=== PATIENT | female | born 1955 | race Caucasian/White ===

== ENCOUNTER → 2016-12-01 | Outpatient (REF) | payer OTHER | LOC: M LAB REF 12:46 | PROVIDERS: ATTEND Physician Assistant Medical | DX: N39.0 Urinary tract infection, site not specified (principal) ==

== ENCOUNTER → 2017-01-21 | Outpatient (CLI) | payer OTHER ==
[2017-01-21 10:02] LABS: ALBUMIN 3.7 GM/DL (3.2-5.2); ALBUMIN/GLOBULIN RATIO 1.12 (1.00-1.93); ALKALINE PHOSPHATASE 65 U/L (45-117); ALT/SGPT 41 U/L (12-78); ANION GAP 6 MEQ/L (8-16); AST/SGOT 25 U/L (15-37); BILIRUBIN,TOTAL 0.5 MG/DL (0.2-1.0); BLOOD UREA NITROGEN 11 MG/DL (7-18); CALCIUM LEVEL 8.7 MG/DL (8.8-10.2); CARBON DIOXIDE LEVEL 29 MEQ/L (21-32); CHLORIDE LEVEL 107 MEQ/L (98-107); CHOLESTEROL LEVEL 169 MG/DL (<200); CREATININE FOR GFR 0.71 MG/DL (0.55-1.02); GLOMERULAR FILTRATION RATE > 60.0 (>45); GLUCOSE, FASTING 145 MG/DL (80-110); POTASSIUM SERUM 4.7 MEQ/L (3.5-5.1); SODIUM LEVEL 142 MEQ/L (136-145); TRIGLYCERIDES LEVEL 93 MG/DL (<150)
== END ==
LOC: M LAB 08:44
PROVIDERS: ATTEND Family Medicine
DX: E11.9 Type 2 diabetes mellitus without complications (principal); Z13.220 Encounter for screening for lipoid disorders

== ENCOUNTER → 2017-03-26 | Outpatient (REF) | payer OTHER | LOC: M LAB REF 17:21 | PROVIDERS: ATTEND Specialist | DX: Z12.4 Encounter for screening for malignant neoplasm of cervix (principal) ==

== ENCOUNTER → 2017-04-20 | Outpatient (CLI) | payer OTHER ==
[2017-04-20 12:06] LABS: BASO % 0.2 % (0.0-1.0); EOS # 0.1 K/mm3 (0.0-0.50); EOS % 2.1 % (0.0-3.0); LARGE UNSTAINED CELL # 0.1 K/mm3 (0.0-0.4); LARGE UNSTAINED CELL % 2.6 % (0.0-4.0); LYMPH # 1.6 K/mm3 (1.5-4.5); LYMPH % 35.8 % (24.0-44.0); MEAN CORPUSCULAR HEMOGLOBIN 31.4 pg (27.0-33.0); MEAN CORPUSCULAR VOLUME 92.6 fl (80.0-96.0); MONO # 0.3 K/mm3 (0.0-0.8); MONO % 7.3 % (0.0-5.0); NEUTROPHILS # 2.1 K/mm3 (1.8-7.7); PLATELET COUNT, AUTOMATED 207 k/mm3 (150-450); RED CELL DISTRIBUTION WIDTH 12.6 % (11.5-14.5); WHITE BLOOD COUNT 4.1 K/mm3 (4.0-10.0)
== END ==
LOC: M LAB 11:26
DX: G62.9 Polyneuropathy, unspecified (principal); R49.0 Dysphonia

== ENCOUNTER → 2017-05-20 | Outpatient (CLI) | payer OTHER ==
--- NOTE | 2017-05-20 10:52 | REPMRS ---
Patient History The patient states she had a clinical breast exam in March 2017. Family history of prostate cancer in maternal grandfather at age 76. Benign stereotatic breast biopsy of the left breast, June 03, 2012. Digital Mammo Screening Bilat: May 20, 2017 - Exam #: [id number] Bilateral CC and MLO view(s) were taken. Technologist: Janice Hyatt, Technologist Prior study comparison: May 19, 2016, bilateral digital mammo screening bilat performed at [facility]. May 10, 2015, bilateral digital mammo screening bilat performed at [facility]. March 16, 2014, bilateral digital mammo screening bilat performed at [facility]. FINDINGS: The breast tissue is heterogeneously dense. This may lower the sensitivity of mammography. A needle biopsy marker clip is again noted projecting in the upper outer quadrant of the left breast. There is a moderate amount of heterogeneously dense fibroglandular tissue which is fairly symmetric. There is no interval development of dominant mass, architectural distortion, or clustered microcalcification typical of malignancy. There has been no change in the appearance of the mammogram from the prior studies. ASSESSMENT: BI-RADS/ACR category 2 mammogram. Benign finding(s). Recommendation Routine screening mammogram in 1 year (for women over age 40). This mammogram was interpreted with the aid of an FDA-approved computer-aided dectection system. Electronically Signed By: Fady Tovar MD 05/20/17 [id number]
== END ==
LOC: M RAD 10:18
PROVIDERS: ATTEND Specialist
DX: Z12.31 Encounter for screening mammogram for malignant neoplasm of breast (principal)

== ENCOUNTER → 2017-07-29 | Outpatient (CLI) | payer OTHER ==
[2017-07-29 10:17] LABS: ALBUMIN 3.8 GM/DL (3.2-5.2); ALBUMIN/GLOBULIN RATIO 1.09 (1.00-1.93); ALKALINE PHOSPHATASE 62 U/L (45-117); ALT/SGPT 41 U/L (12-78); ANION GAP 6 MEQ/L (8-16); AST/SGOT 19 U/L (7-37); BILIRUBIN,TOTAL 0.4 MG/DL (0.2-1.0); BLOOD UREA NITROGEN 12 MG/DL (7-18); CALCIUM LEVEL 9.2 MG/DL (8.8-10.2); CARBON DIOXIDE LEVEL 29 MEQ/L (21-32); CHLORIDE LEVEL 108 MEQ/L (98-107); CREATININE FOR GFR 0.77 MG/DL (0.55-1.02); GLOMERULAR FILTRATION RATE > 60.0 (>45); GLUCOSE, FASTING 161 MG/DL (80-110); SODIUM LEVEL 143 MEQ/L (136-145); TOTAL PROTEIN 7.3 GM/DL (6.4-8.2)
[2017-07-29 10:18] LABS: POTASSIUM SERUM 5.4 MEQ/L (3.5-5.1)
== END ==
LOC: M LAB 09:26
PROVIDERS: ATTEND Student in an Organized Health Care Education/Training Program
DX: E11.9 Type 2 diabetes mellitus without complications (principal); E55.9 Vitamin D deficiency, unspecified

== ENCOUNTER → 2017-10-22 | Outpatient (CLI) | payer OTHER ==
[2017-10-22 11:18] LABS: ESTIMATED AVERAGE GLUCOSE 174 MG/DL (60-110); HEMOGLOBIN A1c 7.7 %
[2017-10-22 11:21] LABS: ANION GAP 6 MEQ/L (8-16); BLOOD UREA NITROGEN 11 MG/DL (7-18); CALCIUM LEVEL 9.3 MG/DL (8.8-10.2); CARBON DIOXIDE LEVEL 31 MEQ/L (21-32); CHLORIDE LEVEL 103 MEQ/L (98-107); CREATININE FOR GFR 0.76 MG/DL (0.55-1.30); GLOMERULAR FILTRATION RATE > 60.0 (>45); GLUCOSE, FASTING 135 MG/DL (70-100); SODIUM LEVEL 140 MEQ/L (136-145)
== END ==
LOC: M LAB 10:33
DX: E11.9 Type 2 diabetes mellitus without complications (principal)
CPT/HCPCS: 83036

== ENCOUNTER → 2017-12-22 | Outpatient (CLI) | payer OTHER ==
[2017-12-22 10:55] LABS: ALBUMIN/GLOBULIN RATIO 1.14 (1.00-1.93); ALKALINE PHOSPHATASE 70 U/L (45-117); ALT/SGPT 43 U/L (12-78); ANION GAP 6 MEQ/L (8-16); AST/SGOT 24 U/L (7-37); BILIRUBIN,TOTAL 0.6 MG/DL (0.2-1.0); BLOOD UREA NITROGEN 9 MG/DL (7-18); CARBON DIOXIDE LEVEL 30 MEQ/L (21-32); CHLORIDE LEVEL 107 MEQ/L (98-107); CREATININE FOR GFR 0.77 MG/DL (0.55-1.30); GLOMERULAR FILTRATION RATE > 60.0 (>45); GLUCOSE, FASTING 151 MG/DL (70-100); POTASSIUM SERUM 4.6 MEQ/L (3.5-5.1); SODIUM LEVEL 143 MEQ/L (136-145); TOTAL PROTEIN 7.5 GM/DL (6.4-8.2)
[2017-12-24 14:19] LABS: VITAMIN D 1,25 DIHYDROXY 35.4 pg/mL (19.9-79.3)
== END ==
LOC: M LAB 09:56
DX: E11.9 Type 2 diabetes mellitus without complications (principal); E55.9 Vitamin D deficiency, unspecified
CPT/HCPCS: 80053

== ENCOUNTER → 2018-04-21 | Outpatient (REF) | payer OTHER ==
[2018-04-21 16:56] LABS: ESTIMATED AVERAGE GLUCOSE 163 MG/DL (60-110); HEMOGLOBIN A1c 7.3 %
[2018-04-21 17:46] LABS: CREATININE, URINE 86.1 MG/DL; MALB URINE SIEMENS 7.2 MG/L; MAU/CREAT RATIO 8.3 MCG/MG (0.0-30.0)
== END ==
LOC: M SFHCPLAZ 12:21
DX: E11.9 Type 2 diabetes mellitus without complications (principal)

== ENCOUNTER → 2018-08-30 | Outpatient (CLI) | payer OTHER ==
[~2018-08-30] MED LIST: ALBU17IN2 INH; ARNU1INH INH; ASPI1TAB PO; CETI10TA PO; FLON1SPR; GLIM2TA PO; METF10004 PO; RANI300T PO
[2018-08-30 10:34] LABS: HEMOGLOBIN A1c 9.1 %
== END ==
LOC: M LAB 09:46
PROVIDERS: ATTEND Student in an Organized Health Care Education/Training Program
DX: E11.9 Type 2 diabetes mellitus without complications (principal)

== ENCOUNTER 2018-10-14 06:36 | Day surgery (SDC) | payer OTHER ==
[~2018-10-14] VITALS: Ht 160 cm; Wt 69.4 kg
[~2018-10-14 06:36] MED LIST changes: +NESI25TA PO; +RANI150T PO
[2018-10-14] MEDS ORDERED: LIDOCAINE 2% INJ 100 MG/5 ML SDV (FOR ANES.) As Ordered ONE (06:59)
[2018-10-14] MEDS ORDERED: PROPOFOL 200 MG/20 ML VIAL As Ordered ONE (06:59)
[2018-10-14] MEDS ORDERED: NS 1,000 ML IV ONE (07:00)
[2018-10-14] MEDS ORDERED: SIMETHICONE 40MG/0.6ML DROPS 30ML As Ordered ONE (07:09)
--- NOTE | 2018-10-14 07:57 | ROOR ---
Patient Name: Luann Tomas Procedure Date: 10/14/2018 7:36 AM Date of : 1955 Age: 62 Room: [facility] Gender: Female Note Status: Finalized Procedure: Colonoscopy Indications: High risk colon cancer surveillance: Personal history of colonic polyps, Last colonoscopy: July 2013 Providers: Kurt MAHAJAN MD Referring MD: HERMAN ZAMORA MD Requesting Provider: Medicines: Monitored Anesthesia Care Complications: No immediate complications. Procedure: Pre-Anesthesia Assessment: - The heart rate, respiratory rate, oxygen saturations, blood pressure, adequacy of pulmonary ventilation, and response to care were monitored throughout the procedure. The Colonoscope was introduced through the anus and advanced to the terminal ileum, with identification of the appendiceal orifice and IC valve. The colonoscopy was performed without difficulty. The patient tolerated the procedure well. The quality of the bowel preparation was good. Findings: The perianal and digital rectal examinations were normal. Small Internal Hemorrhoids. The entire examined colon appeared normal on direct and retroflexion views. Retroflexion in the right colon was performed. Impression: - Small Internal Hemorrhoids. - The entire colon is normal on direct and retroflexion views. - No specimens collected. Recommendation: - Repeat colonoscopy in 10 years for screening purposes. Kurt Mahajan MD Kurt MAHAJAN MD 10/14/2018 7:56:42 AM This report has been signed electronically. Number of Addenda: 0 Note Initiated On: 10/14/2018 7:36 AM Estimated Blood Loss: Estimated blood loss: none.
[2018-10-14 08:15] VITALS: BP 139/76
== END 2018-10-14 08:24 | disposition home or self-care (01) ==
LOC: M OPP 06:36
PROVIDERS: ATTEND Internal Medicine Gastroenterology
DX: K64.8 Other hemorrhoids (principal); Z86.010 Personal history of colon polyps

== ENCOUNTER → 2018-12-08 | Outpatient (CLI) | payer OTHER ==
[~2018-12-08] MED LIST changes: -ASPI1TAB PO; +ASPI81TA26 PO; -GLIM2TA PO; +GLIM2TAB29 PO
[2018-12-08 15:02] LABS: HEMOGLOBIN A1c 7.2 %
== END ==
LOC: M LAB 12:12
PROVIDERS: ATTEND Student in an Organized Health Care Education/Training Program
DX: E11.9 Type 2 diabetes mellitus without complications (principal)

== ENCOUNTER → 2019-01-04 | Outpatient (REF) | payer OTHER | LOC: M SFHCPLAZ 10:30 | PROVIDERS: ATTEND Family Medicine | DX: Z53.9 Procedure and treatment not carried out, unspecified reason (principal); R10.11 Right upper quadrant pain; E11.9 Type 2 diabetes mellitus without complications ==

== ENCOUNTER → 2019-01-07 | Outpatient (CLI) | payer OTHER ==
--- NOTE | 2019-01-07 08:49 | REP ---
Clinical: Right upper quadrant pain. Technique: Real time hernandez scale ultrasound examination using curved array transducer. Findings: The liver is increased echogenicity suggesting fatty infiltration with focal fatty sparing surrounding the gallbladder fossa. The gallbladder is normal and without gallstones, wall thickening, or pericholecystic fluid. No biliary ductal dilatation is appreciated and the common bile duct measures 6.4 mm diameter. Pancreas is incompletely evaluated due to interposed bowel gas but visualized portions appear normal. The right kidney is normal in reniform shape without hydronephrosis and measures 10.0 x 4.4 x 4.3 cm. No ascites. Impression: Hepatic steatosis. Electronically Signed by Jerel Daly MD 01/07/2019 08:41 A
== END ==
LOC: M RAD 06:46
PROVIDERS: ATTEND Student in an Organized Health Care Education/Training Program
DX: K76.0 Fatty (change of) liver, not elsewhere classified (principal)

== ENCOUNTER → 2019-01-11 | Outpatient (CLI) | payer OTHER ==
--- NOTE | 2019-01-12 00:58 | REP ---
Clinical: Right wrist pain and numbness. Technique: AP, lateral, bilateral oblique views. Findings: The carpal bones, surrounding osseous structures, soft tissues, and joint spaces are normal. There is no evidence for acute fracture or dislocation. No subcutaneous emphysema or radiodense foreign body. Impression: Normal wrist series. No acute fracture or dislocation Electronically Signed by Jerel Daly MD 01/12/2019 12:50 A
== END ==
LOC: M RAD 17:24
PROVIDERS: ATTEND Student in an Organized Health Care Education/Training Program
DX: M62.81 Muscle weakness (generalized) (principal)

== ENCOUNTER → 2019-03-31 | Outpatient (CLI) | payer OTHER ==
[2019-03-31 10:57] LABS: HEMOGLOBIN A1c 8.1 %
== END ==
LOC: M LAB 10:01
PROVIDERS: ATTEND Student in an Organized Health Care Education/Training Program
DX: E11.9 Type 2 diabetes mellitus without complications (principal)

== ENCOUNTER 2019-04-11 18:15 | Emergency (ER) | payer OTHER ==
[~2019-04-11] VITALS: Ht 160 cm; Wt 70.9 kg
[~2019-04-11 18:15] MED LIST changes: -ALBU17IN2 INH; +PROV108A INH
[2019-04-11] MEDS ORDERED: GLIP5TAB8 (18:30)
--- NOTE | 2019-04-11 19:13 | REPVR ---
EXAM: CT Head Without Contrast EXAM DATE/TIME: 04/11/2019 6:44 PM CLINICAL HISTORY: 63 years old, female; Numbness / parasthesia; Additional info: Facial numbness TECHNIQUE: Imaging protocol: Computed tomography images of the head without contrast. Radiation optimization: All CT scans at this facility use at least one of these dose optimization techniques: automated exposure control; mA and/or kV adjustment per patient size (includes targeted exams where dose is matched to clinical indication); or iterative reconstruction. COMPARISON: No relevant prior studies available. FINDINGS: Brain: Normal. No hemorrhage. Unremarkable white matter. No mass effect. Ventricles: Normal. No ventriculomegaly. Bones/joints: Unremarkable. No acute fracture. Sinuses: Visualized sinuses are unremarkable. No fluid levels. Mastoid air cells: Visualized mastoid air cells are well aerated. No mastoid effusion. Soft tissues: Unremarkable. IMPRESSION: No acute intracranial abnormality. Electronically signed by: Michael Bradley On 04/11/2019 19:13:20 PM
[2019-04-11 19:35] LABS: BASO % 0.2 % (0.0-1.0); EOS # 0.1 10^3/uL (0.0-0.50); HEMATOCRIT 36.2 % (36.0-47.0); HEMOGLOBIN 12.3 g/dl (12.0-15.5); LYMPH # 1.6 10^3/uL (1.5-4.5); LYMPH % 27.4 % (24.0-44.0); MEAN CORPUSCULAR HEMOGLOBIN 31.1 pg (27.0-33.0); MEAN CORPUSCULAR VOLUME 91.4 fl (80.0-96.0); MONO # 0.5 10^3/uL (0.0-0.8); MONO % 7.7 % (0.0-5.0); NEUTROPHILS # 3.7 10^3/uL (1.8-7.7); NEUTROPHILS % 63.5 % (36.0-66.0); PLATELET COUNT, AUTOMATED 188 10^3/uL (150-450); RED BLOOD COUNT 3.96 10^6/uL (4.00-5.40); WHITE BLOOD COUNT 5.8 10^3/uL (4.0-10.0)
[2019-04-11 19:46] LABS: INR 1.03; PROTHROMBIN TIME 13.2 SECONDS (11.8-14.0)
[2019-04-11 19:47] LABS: PARTIAL THROMBOPLASTIN TIME 27.8 SECONDS (25.0-38.4)
[2019-04-11 20:09] LABS: ALBUMIN 3.8 GM/DL (3.2-5.2); ALT/SGPT 31 U/L (12-78); BILIRUBIN,DIRECT < 0.1 MG/DL (0.0-0.2); BILIRUBIN,TOTAL 0.2 MG/DL (0.2-1.0); BLOOD UREA NITROGEN 10 MG/DL (7-18); CARBON DIOXIDE LEVEL 28 MEQ/L (21-32); CHLORIDE LEVEL 105 MEQ/L (98-107); CK-MB VALUE MASS 1.9 NG/ML (<3.6); CPK CREATINE PHOSPHOKINASE 209 U/L (26-192); GLOMERULAR FILTRATION RATE 37.3 (>45); GLUCOSE, FASTING 196 MG/DL (70-100); LIPASE 264 U/L (73-393); MB/CK RELATIVE INDEX 0.91 (< OR =4); NT-PRO BNP 87 PG/ML (<125); POTASSIUM SERUM 4.2 MEQ/L (3.5-5.1); SODIUM LEVEL 140 MEQ/L (136-145); THYROID STIMULATING HORMONE 0.523 uIU/ML (0.358-3.740); TOTAL PROTEIN 7.3 GM/DL (6.4-8.2); TROPONIN I < 0.02 NG/ML (< 0.10)
--- NOTE | 2019-04-11 20:19 | ECGEPIP ---
[facility] - ED Test Date: 2019-04-11 Pat Name: AGATHA WISE Department: Room: - Gender: Female [employer]: : 1955 Requested By: Antolin Ray Order Number: [id number] Reading MD: Antolin Ray Measurements Intervals [place] Rate: 72 P: 28 [place]: 142 QRS: 7 QRSD: 91 T: 17 QT: 401 QTc: 440 Interpretive Statements SINUS RHYTHM POSSIBLE RIGHT VENTRICULAR CONDUCTION DELAY NONSPECIFIC ST T WAVE CHANGES CW 05/24/[address] T WAVE CHANGES Electronically Signed on 04-11-2019 20:19:21 EDT by Antolin Ray
[2019-04-11] MEDS ORDERED: NS 1,000 ML IV ONE (20:30)
[2019-04-11] MEDS ORDERED: KETOROLAC 30 MG/ML VIAL (J1885) IV ONE (20:30)
[2019-04-11] MEDS ORDERED: ISOVUE-370 76% 100ML VIAL (Q9967) As Ordered ONE (22:48)
[2019-04-11 23:04] VITALS: BP 165/79
--- NOTE | 2019-04-11 23:33 | REPVR ---
EXAM: CT Angiography Chest With Contrast EXAM DATE/TIME: 04/11/2019 10:56 PM CLINICAL HISTORY: 63 years old, female; Chest pain; Type not specified; Additional info: Cp TECHNIQUE: Imaging protocol: Axial computed tomographic angiography images of the chest with intravenous contrast using CT angiography protocol. Coronal and sagittal reformatted images were created and reviewed. 3D rendering: MIP reconstructed images were created and reviewed. Radiation optimization: All CT scans at this facility use at least one of these dose optimization techniques: automated exposure control; mA and/or kV adjustment per patient size (includes targeted exams where dose is matched to clinical indication); or iterative reconstruction. Contrast material: ISO;Contrast volume: 75 ml;Contrast route: AC; COMPARISON: CT Chest with contrast 02/14/2014 5:45 PM FINDINGS: Pulmonary arteries: There is opacification of the pulmonary arteries with no evidence of pulmonary embolus. Aorta: There is opacification of the aorta which appears intact. Lungs: There is patchy hazy interstitial density throughout the lungs and not seen on the examination of 2014. This could represent chronic or acute interstitial lung changes. Chronic interstitial lung disease includes sarcoidosis, idiopathic pulmonary fibrosis, collagen vascular disease, histiocytosis. Acute interstitial lung disease includes UIP, DIP patchy interstitial edema, interstitial pneumonitis and allergic pneumonitis. Pleural space: Unremarkable. No pneumothorax. No pleural effusion. Heart: The heart is normal in size. Gallbladder and bile ducts: Normal gallbladder. Adrenals: Normal adrenal glands. Lymph nodes: Unremarkable. No enlarged lymph nodes. Bones/joints: No evidence of bony abnormality. Soft tissues: Unremarkable. IMPRESSION: 1. No evidence of pulmonary embolus. 2. Patchy and hazy interstitial density throughout both lungs new since 2014. Differential considerations listed above. Electronically signed by: Michael Bradley On 04/11/2019 23:32:54 PM
[2019-04-12] MEDS ORDERED: dexameTHASONE 20 MG/5 ML VIAL (J1100) IV ONE
[2019-04-12] MEDS ORDERED: PRED20TA PO (00:10)
--- NOTE | 2019-04-12 07:22 | REP ---
REASON: Chest pain. PRIORS: None. FINDINGS: The technique utilized in obtaining the radiograph has magnified the cardiac silhouette and accentuated the interstitial markings. The superior mediastinal structures are midline. The cardiac silhouette is unremarkable in size, shape, and position. The diaphragmatic surfaces of the lungs are regular, and the costophrenic angles are clear. The pulmonary ramos are clear. The imaged osseous structures are intact. IMPRESSION: There is no acute cardiopulmonary disease. Electronically Signed by David Rivera DO 04/12/2019 10:11 A
--- NOTE | 2019-04-12 16:20 | ED PDOC ---
Post-Departure Follow-Up certified letter sent to pt re formal read of cta chest. see report.needs fu. fi nd out who pcp is and fax report and have pt fu there. if no pcp [facility] fax report there Antolin Reyes MD Apr 12, 2019 16:20
== END 2019-04-12 00:24 | disposition home or self-care (01) ==
LOC: M ED 18:15
DX: J67.9 Hypersensitivity pneumonitis due to unspecified organic dust (principal); R07.1 Chest pain on breathing; E11.9 Type 2 diabetes mellitus without complications; K21.9 Gastro-esophageal reflux disease without esophagitis; J45.909 Unspecified asthma, uncomplicated; J30.2 Other seasonal allergic rhinitis; R91.8 Other nonspecific abnormal finding of lung field; Z79.82 Long term (current) use of aspirin; Z79.4 Long term (current) use of insulin; Z79.899 Other long term (current) drug therapy; Z88.5 Allergy status to narcotic agent
CPT/HCPCS: 70450; 71045; 71275; 80048; 80076; 82550; 82553; 83690; 83880; 84439; 84443; 85025; 85610; 85730; 86850; 86900; 86901; 93005; 93041; 94760; 96361; 96374; 96375; 99285; J1100; J1885; Q9967

== ENCOUNTER → 2019-06-20 | Outpatient (CLI) | payer OTHER ==
[~2019-06-20] MED LIST changes: +GLIP5TAB8; +PRED20TA PO
[2019-06-20 11:56] LABS: HEMOGLOBIN A1c 8.7 %
[2019-06-20 12:02] LABS: CREATININE, URINE 77.9 MG/DL; MALB URINE SIEMENS 9.6 MG/L; MAU/CREAT RATIO 12.3 MCG/MG (0.0-30.0)
[2019-06-20 12:07] LABS: CHOLESTEROL LEVEL 180 MG/DL (<200); CHOLESTEROL RISK RATIO 2.903 (<5); HDL CHOLESTEROL 62 MG/DL (>40); LDL CHOLESTEROL 94 MG/DL (<100); NON-HDL-C 118 MG/DL; TRIGLYCERIDES LEVEL 119 MG/DL (<150)
== END ==
LOC: M LAB 10:13
PROVIDERS: ATTEND Student in an Organized Health Care Education/Training Program
DX: Z13.6 Encounter for screening for cardiovascular disorders (principal); E11.9 Type 2 diabetes mellitus without complications; Z86.19 Personal history of other infectious and parasitic diseases

== ENCOUNTER → 2019-07-07 | Outpatient (CLI) | payer OTHER ==
[2019-07-07 15:04] LABS: BLOOD UREA NITROGEN 15 MG/DL (7-18); CALCIUM LEVEL 9.2 MG/DL (8.8-10.2); CARBON DIOXIDE LEVEL 30 MEQ/L (21-32); CHLORIDE LEVEL 103 MEQ/L (98-107); CREATININE FOR GFR 0.85 MG/DL (0.55-1.30); GLOMERULAR FILTRATION RATE > 60.0 (>45); GLUCOSE, FASTING 214 MG/DL (70-100); POTASSIUM SERUM 4.4 MEQ/L (3.5-5.1); SODIUM LEVEL 138 MEQ/L (136-145)
--- NOTE | 2019-07-07 17:01 | ECGEPIP ---
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 Electronically Signed on 07-07-2019 17:01:17 EDT by Kurt Ray
== END ==
LOC: M LAB 14:00
PROVIDERS: ATTEND Physician Assistant Surgical
DX: G56.01 Carpal tunnel syndrome, right upper limb (principal); M65.351 Trigger finger, right little finger

== ENCOUNTER → 2019-08-29 | Outpatient (CLI) | payer OTHER ==
[2019-08-29 12:24] LABS: HEMOGLOBIN A1c 8.3 %
== END ==
LOC: M LAB 10:59
PROVIDERS: ATTEND Student in an Organized Health Care Education/Training Program
DX: E11.9 Type 2 diabetes mellitus without complications (principal)

== ENCOUNTER 2019-09-05 09:50 | Outpatient (RCR) | payer OTHER | END 2019-09-06 | LOC: M PT 09:50 | PROVIDERS: ATTEND Physician Assistant Medical | DX: Z47.89 Encounter for other orthopedic aftercare (principal) ==

== ENCOUNTER → 2019-09-05 | Outpatient (CLI) | payer OTHER ==
--- NOTE | 2019-09-05 12:39 | REP ---
Clinical: Hepatitis C. Technique: Real time hernandez scale ultrasound examination using curved array transducer. Findings: Liver is diffusely increased echogenicity with poor through transmission suggesting fatty infiltration. No focal hepatic lesion identified. The pancreas is incompletely evaluated due to interposed bowel gas but visualized portions appear normal. Gallbladder is normal and without gallstones, wall thickening, or pericholecystic fluid. No biliary ductal dilatation is appreciated and the common bile duct measures 6.2 mm diameter. Right kidney is normal in reniform shape without hydronephrosis and measures 10.4 x 4.4 x 4.3 cm. No ascites. Impression: Hepatosteatosis. No focal hepatic lesion identified. Electronically Signed by Jerel Daly MD 09/05/2019 08:08 A
== END ==
LOC: M RAD 07:37
PROVIDERS: ATTEND Student in an Organized Health Care Education/Training Program
DX: B18.2 Chronic viral hepatitis C (principal)

== ENCOUNTER 2019-10-06 10:45 | Outpatient (RCR) | payer OTHER | END 2019-10-07 | LOC: M PT 10:45 | PROVIDERS: ATTEND Physician Assistant Medical | DX: Z47.89 Encounter for other orthopedic aftercare (principal) ==

== ENCOUNTER → 2019-10-26 | Outpatient (REF) | payer OTHER ==
[2019-10-26 13:36] LABS: INFLUENZA A AMPLIFICATION POSITIVE (NEGATIVE); INFLUENZA B AMPLIFICATION NEGATIVE (NEGATIVE)
== END ==
LOC: M LAB REF 12:32
PROVIDERS: ATTEND Physician Assistant
DX: J11.1 Influenza due to unidentified influenza virus with other respiratory manifestations (principal)

== ENCOUNTER → 2019-11-22 | Outpatient (CLI) | payer OTHER ==
[2019-11-22 10:39] LABS: HEMOGLOBIN A1c 9.1 %
== END ==
LOC: M LAB 08:55
PROVIDERS: ATTEND Student in an Organized Health Care Education/Training Program
DX: E11.9 Type 2 diabetes mellitus without complications (principal)

== ENCOUNTER → 2020-08-29 | Outpatient (REF) | payer OTHER ==
[2020-08-29 11:58] LABS: BASO % 0.4 % (0.0-1.0); EOS # 0.2 10^3/uL (0.0-0.5); EOS % 3.5 % (0.0-3.0); HEMATOCRIT 41.1 % (36.0-47.0); HEMOGLOBIN 13.4 g/dl (12.0-15.5); LYMPH # 1.9 10^3/uL (1.5-5.0); LYMPH % 40.1 % (24.0-44.0); MEAN CORPUSCULAR HEMOGLOBIN 29.7 pg (27.0-33.0); MEAN CORPUSCULAR HGB CONC 32.6 g/dl (32.0-36.5); MEAN CORPUSCULAR VOLUME 91.1 fl (80.0-96.0); MONO # 0.4 10^3/uL (0.0-0.8); MONO % 8.9 % (0.0-5.0); NEUTROPHILS # 2.2 10^3/uL (1.5-8.5); NEUTROPHILS % 46.9 % (36.0-66.0); PLATELET COUNT, AUTOMATED 218 10^3/uL (150-450); RED BLOOD COUNT 4.51 10^6/uL (4.00-5.40); WHITE BLOOD COUNT 4.6 10^3/uL (4.0-10.0)
[2020-08-29 12:35] LABS: ALBUMIN 3.9 GM/DL (3.2-5.2); ALT/SGPT 37 U/L (12-78); BILIRUBIN,TOTAL 0.4 MG/DL (0.2-1.0); BLOOD UREA NITROGEN 13 MG/DL (7-18); CALCIUM LEVEL 9.1 MG/DL (8.8-10.2); CARBON DIOXIDE LEVEL 31 MEQ/L (21-32); CHLORIDE LEVEL 105 MEQ/L (98-107); CHOLESTEROL LEVEL 167 MG/DL (<200); CHOLESTEROL RISK RATIO 2.982 (<5); CREATININE FOR GFR 0.71 MG/DL (0.55-1.30); FREE T4 1.01 NG/DL (0.76-1.46); GLOMERULAR FILTRATION RATE > 60.0 (>45); GLUCOSE, FASTING 268 MG/DL (70-100); HDL CHOLESTEROL 56 MG/DL (>40); LDL CHOLESTEROL 95 MG/DL (<100); NON-HDL-C 111 MG/DL; SODIUM LEVEL 139 MEQ/L (136-145); THYROID STIMULATING HORMONE 0.546 uIU/ML (0.358-3.740); TOTAL PROTEIN 7.1 GM/DL (6.4-8.2); TRIGLYCERIDES LEVEL 79 MG/DL (<150)
[2020-08-29 13:16] LABS: HEMOGLOBIN A1c 10.4 %
[2020-08-30 09:21] LABS: TOTAL 25(OH) VITAMIN D 49.9 NG/ML (30.0-100.0)
== END ==
LOC: M LAB REF 11:29
PROVIDERS: ATTEND Nurse Practitioner Family
DX: J45.909 Unspecified asthma, uncomplicated (principal); K21.9 Gastro-esophageal reflux disease without esophagitis

== ENCOUNTER 2020-10-28 14:28 | Emergency (ER) | payer OTHER ==
[~2020-10-28] VITALS: Ht 160 cm; Wt 69.5 kg
--- OUTSIDE RECORDS SUMMARY | 2020-10-28 14:34 | CCD ---
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 Active Not available glipizide 10 mg tablet Take 1 tablet twice a day by oral route as directed. Active Not available glipizide 5 mg tablet TAKE ONE TABLET BY MOUTH TWICE A DAY Active No t available metformin 1,000 mg tablet Take 1 tablet twice a day by oral route as directed. Active Not available omeprazole 20 mg capsule,delayed release TAKE ONE CAPSULE BY MOUTH EVERY DAY DIRECTED Active Not available OneTouch Ultra Blue Test Strip USE TO TEST THREE TIMES A DAY NEEDED UNDER THE SKIN Active Not available oseltamivir 75 mg capsule Completed 2019 ranitidine 150 mg tablet Completed 020 triamcinolone acetonide 0.1 % topical ointment Active Not available Ventolin HFA 90 mcg/actuation aerosol in haler INHALE 1 PUFF BY MOUTH NEEDED EVERY 4 HOURS Active Not available Problems None recorded. Procedures Notes: Lid Lift both Eyes Results Lab Results None recorded. Past Encounters 08/22/2020 Needs Influenza Immunization; Type II Diabetes Mellitus Uncontrolled; Asthma Crystal Mendez, [employer]-[facility]: [address] [place] [address], Ph. Social History Tobacco Smoking Status Never Smoker Vaccine List Vaccine Type influenza, injectable, quadrivalent, pre servative free 08/24/20200.5 mL Notes: Pt would like Flu vaccine Plan of Care Reminders Provider Appointments None recorded. Lab None recorded. Referral None recorded. Procedures None recorded. Surgeries None recorded. Imaging None recorded. Vitals Height Weight BMI Blood Pressure 63 in 152 lbs 2 oz 26.9 kg/m2 (1) 154/93 mm[ Hg] (2) 138/79 mm[Hg]
--- OUTSIDE RECORDS SUMMARY | 2020-10-28 14:34 | CCD ---
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 Name Role Phone [facility] 2 [phone] Allergies Code Code System Name Reaction Severity Status Onset 2669 RxNorm Codeine Rash Mild Active Medications Name Status Start Date Stop Date albuterol sulfate 2.5 mg/3 mL (0.083 %) solution for nebulizatio n Active Not available albuterol sulfate HFA 90 mcg/actuation a erosol inhaler INHALE 1 PUFF BY MOUTH EVERY 4 HOURS NEEDED Active Not available aspirin 81 mg tablet,delayed release TAKE ONE TABLET BY MOUTH EVERY DAY DIRECTED Active Not available glipizide 10 mg tablet TAKE ONE TABLET BY MOUTH TWICE A DAY DIRECTED Active Not available glipizide 5 mg tablet TAKE ONE TABLET BY MOUTH TWICE A DAY Completed metformin 1,000 mg tablet TAKE ONE TABLET BY MOUTH TWICE A DAY DIRECTED Active Not available omeprazole 20 mg capsule,delayed release TAKE ONE CAPSULE BY MOUTH EVERY DAY DIRECTED Active Not available OneTouch Ultra Blue Test Strip USE TO TEST THREE TIMES A DAY NEEDED UNDER THE SKIN Active Not available oseltamivir 75 mg capsule Completed 2019 ranitidine 150 mg tablet Completed 020 triamcinolone acetonide 0.1 % topical ointment Active Not available Problems None recorded. Procedures Date Name Performed by 10/03/2020 MAMMO, Screening, Digital, Bilateral Inf ormation not available Notes: Lid Lift both Eyes Results Lab Results Date Name Specimen Result Interpretation Description Value Range Status Address 08/29/2020 CBC W/ Auto Diff Normal White Blood Count 4.6 10 4.0-10.0 10 [facility]: [address] [facility] Normal Red Blood Count 4.51 10 4.00-5.40 10 [facility]: [address] [facility] Normal Hemoglobin 13.4 g/dL 12.0-15.5 g/dL Final [facility]: [address] [facility] Normal Hematocrit 41.1 % 36.0-47.0 % [facility]: [address] [facility] Normal Mean Corpuscular Volume 91.1 fL 80.0 -96.0 fL [facility]: [address] [facility] Normal Mean Corpuscular Hemoglobin 29.7 pg 27.0-33.0 pg Final [facility]: [address] [facility] Normal Mean Corpuscular HGB Conc 32.6 g/dL 32.0-36.5 g/dL Final [facility]: [address] [facility] Normal Red Cell Distribution Width 11.9 % 1 1.5-14.5 % [facility]: [address] [facility] Normal Platelet Count, Automated 218 10 150 -450 10 [facility]: [address] [facility] Normal Neutrophils % 46.9 % 36.0-66.0 % [facility]: [address] [facility] Normal Lymph % 40.1 % 24.0-44.0 % [facility]: [address] [facility] High [place] % 8.9 % 0.0-5.0 % [facility]: [address] [facility] High Eos % 3.5 % 0.0-3.0 % [facility]: [address] [facility] Normal Baso % 0.4 % 0.0-1.0 % [facility]: [address] [facility] Normal Immature Granulocyte % 0.2 % 0-3.0 % [facility]: [address] [facility] Normal Nucleated Red Blood Cell % 0.0 % 0- 0 % [facility]: [address] [facility] Normal Neutrophils # 2.2 10 1.5-8.5 10 [facility]: [address] [facility] Normal Lymph # 1.9 10 1.5-5.0 10 [facility]: [address] [facility] Normal [place] # 0.4 10 0.0-0.8 10 [facility]: [address] [facility] Normal Eos # 0.2 10 0.0-0.5 10 [facility]: [address] [facility] Normal Baso # 0.0 10 0.0-0.2 10 [facility]: [address] [facility] 08/29/2020 HbA1C (Hemoglobin a1C), Blood Normal Hemogl obin a1C 10.4 % [facility]: [address] [facility] High Estimated Average Glucose 252 mg/dL 60-110 mg/dL [facility]: 0 [facility] 08/29/2020 CMP, Serum or Plasma High Glucose, Fastin g 268 mg/dL 70-100 mg/dL [facility]: 83 0 [facility] Normal Blood Urea Nitrogen 13 mg/dL 7-18 mg /dL [facility]: [address] [facility] Normal Creatinine for GFR 0.71 mg/dL 0.55-1 .30 mg/dL [facility]: 0 [facility] Normal Glomerular Filtration Rate > 60.0 >4 5 [facility]: [address] [facility] Normal Sodium Level 139 mEq/L 136-145 mEq/L [facility]: 0 [facility] Normal Potassium Serum 5.0 mEq/L 3.5-5.1 mE q/L [facility]: [address] [facility] Normal Chloride Level 105 mEq/L 98-107 mEq/ L [facility]: 0 [facility] Normal Carbon Dioxide Level 31 mEq/L 21-32 mEq/L [facility]: 0 [facility] Low Anion Gap 3 mEq/L 8-16 mEq/L [facility]: [address] [facility] Normal Calcium Level 9.1 mg/dL 8.8-10.2 mg/ dL [facility]: 0 [facility] Normal AST/SGOT 15 U/L 7-37 U/L [facility]: [address] [facility] Normal ALT/SGPT 37 U/L 12-78 U/L Final [facility]: [address] [facility] Normal Alkaline Phosphatase 73 U/L 45-117 U /L [facility]: [address] [facility] Normal Bilirubin,total 0.4 mg/dL 0.2-1.0 mg /dL [facility]: [address] [facility] Normal Total Protein 7.1 gm/dL 6.4-8.2 gm/d L [facility]: [address] [facility] Normal Albumin 3.9 gm/dL 3.2-5.2 gm/dL [facility]: [address] [facility] Normal Albumin/globulin Ratio 1.2 1.2-2. 2 [facility]: [address] [facility] 08/29/2020 Lipid Panel, Blood Normal Triglycerides Lev el 79 mg/dL <150 mg/dL [facility]: 83 0 [facility] Normal Cholesterol Level 167 mg/dL <200 mg/ dL [facility]: [address] [facility] Normal HDL Cholesterol 56 mg/dL >40 mg/dL [facility]: [address] [facility] Normal LDL Cholesterol 95 mg/dL <100 mg/dL [facility]: [address] [facility] Normal Non-hdl-c 111 mg/dL [facility]: [address] [facility] Normal Cholesterol Risk Ratio 2.982 <5 [facility]: [address] [facility] 08/29/2020 TSH + Free T4, Serum Normal Thyroid Stimulating Hormone 0.546 uIU/mL 0.358-3.740 uIU/mL [facility]ter: [address] [facility] Normal Free T4 1.01 NG/dL 0.76-1.46 NG/dL [facility]: [address] [facility] 08/29/2020 Vitamin D, 25-Hydroxy, Total, Serum Normal Total 25(Oh) Vitamin D 49.9 NG/mL 30.0-100.0 NG/mL Final [facility]: [address] [facility] Past Encounters 10/03/2020 Patient Asked to Attend; Screening for Malignant Neoplasm of Breast; Type II Diabetes Mellitus Uncontrolled [facility]: [address] [place] [phone], Ph. 08/29/2020 Type II Diabetes Mellitus Uncontrolled [facility]: [address] [place] [phone], Ph. 08/22/2020 Needs Influenza Immunization; Type II Diabetes Mellitus Uncontrolled; Asthma [facility]: [address] [place] [phone], Ph. Social History Tobacco Smoking Status Never Smoker Vaccine List Vaccine Type influenza, injectable, quadrivalent, pre servative free 08/24/20200.5 mL Notes: Pt would like Flu vaccine Plan of Care Patient Instructions Lab results reviewed and discussed with you today. Please continue medications as prescribed. Please try to maintain good nutrition, adequate rest, adequate physical activities and adequate intake of water daily. Please try to avoid processed foods. Reminders Provider Appointments None recorded. Lab None recorded. Referral None recorded. Procedures None recorded. Surgeries None recorded. Imaging None recorded. Vitals 10/03/2020 05:00PM ESTABLISHED [id number] Height Weight BMI Blood Pressure 63 in 151 lbs 8 oz 26.8 kg/m2 124/77 mm[Hg] 08/22/2020 05:00PM NEW ACUTE 20 Height Weight BMI Blood Pressure 63 in 152 lbs 2 oz 26.9 kg/m2 (1) 154/93 mm[ Hg] (2) 138/79 mm[Hg]
--- OUTSIDE RECORDS SUMMARY | 2020-10-28 14:34 | CCD ---
Author Author [facility] Organization [facility] Address Unknown Phone Unavailable Care Team Providers Care Lubricating Machine Tender Name Role Phone Andrea, A Crystal DISABILITY RATER Unavailable Unavailable [place], A Crystal DISABILITY RATER Unavailable Unavailable [place], A Crystal DISABILITY RATER Unavailable Unavailable [place], A Crystal DISABILITY RATER Unavailable Unavailable [place], A Crystal DISABILITY RATER Unavailable Unavailable [place], A Crystal DISABILITY RATER Unavailable Unavailable [place], A Crystal DISABILITY RATER Unavailable Unavailable [place], A Crystal DISABILITY RATER Unavailable Unavailable [place], A Crystal DISABILITY RATER Unavailable Unavailable [place], A Crystal DISABILITY RATER Unavailable Unavailable [place], A Crystal DISABILITY RATER Unavailable Unavailable [place], A Crystal DISABILITY RATER Unavailable Unavailable [place], A Crystal DISABILITY RATER Unavailable Unavailable [place], A Crystal DISABILITY RATER Unavailable Unavailable [place], A Crystal DISABILITY RATER Unavailable Unavailable [place], A Crystal DISABILITY RATER Unavailable Unavailable [place], A Crystal DISABILITY RATER Unavailable Unavailable [place], A Crystal DISABILITY RATER Unavailable Unavailable [place], A Crystal DISABILITY RATER Unavailable Unavailable [place], A Crystal DISABILITY RATER Unavailable Unavailable [place], A Crystal DISABILITY RATER Unavailable Unavailable [place], A Crystal DISABILITY RATER Unavailable Unavailable [place], A Crystal DISABILITY RATER Unavailable Unavailable [place], A Crystal DISABILITY RATER Unavailable Unavailable [place], A Crystal DISABILITY RATER Unavailable Unavailable [place], A Crystal DISABILITY RATER Unavailable Unavailable [place], A Crystal DISABILITY RATER Unavailable Unavailable [place], A Crystal DISABILITY RATER Unavailable Unavailable Marilou YOUNG MD Unavailable Unavailable HECTORMarilou CALLE MD Unavailable Unavailable HECTORMarilou CALLE MD Unavailable Unavailable HECTOR, Marilou BRAGA MD Unavailable Unavailable HECTORMarilou CALLE MD Unavailable Unavailable HECTORMarilou CALLE MD Unavailable Unavailable HECTORMarilou CALLE MD Unavailable Unavailable HECTORMarilou CALLE MD Unavailable Unavailable HECTORMarilou CALLE MD Unavailable Unavailable HECTOR, L MARIA LUZ MD Unavailable Unavailable HECTOR, L MARIA LUZ MD Unavailable Unavailable HECTOR, L MARIA LUZ MD Unavailable Unavailable HECTOR, L MARIA LUZ MD Unavailable Unavailable HECTOR, L MARIA LUZ MD Unavailable Unavailable HECTOR, L MARIA LUZ Unavailable Unavailable HECTOR, L MARIA LUZ MD Unavailable Unavailable HECTOR, L MARIA LUZ Unavailable Unavailable HECTOR, L MARIA LUZ MD Unavailable Unavailable HECTOR, L MARIA LUZ MD Unavailable Unavailable HECTOR, L MARIA LUZ MD Unavailable Unavailable HECTOR, L MARIA LUZ MD Unavailable Unavailable HECTOR, L MARIA LUZ MD Unavailable Unavailable HECTOR, L MARIA LUZ MD Unavailable Unavailable Re-disclosure Warning The records that you are about to access may contain information from federally-assisted alcohol or drug abuse programs. If such information is present, then the following federally mandated warning applies: This information has been disclosed to you from records protected by federal confidentiality rules (42 CFR part 2). The federal rules prohibit you from making any further disclosure of this information unless further disclosure is expressly permitted by the written consent of the person to whom it pertains or as otherwise permitted by 42 CFR part 2. A general authorization for the release of medical or other information is NOT sufficient for this purpose. The Federal rules restrict any use of the information to criminally investigate or prosecute any alcohol or drug abuse patient.The records that you are about to access may contain highly sensitive health information, the redisclosure of which is protected by Article 27-F of the [facility] Public Health law. If you continue you may have access to information: Regarding HIV / AIDS; Provided by facilities licensed or operated by the [facility] Office of Mental Health; or Provided by the [facility] Office for People With Developmental Disabilities. If such information is present, then the following [facility] mandated warning applies: This information has been disclosed to you from confidential records which are protected by state law. State law prohibits you from making any further disclosure of this information without the specific written consent of the person to whom it pertains, or as otherwise permitted by law. Any unauthorized further disclosure in violation of state law may result in a fine or usp sentence or both. A general authorization for the release of medical or other information is NOT sufficient authorization for further disc losure. Allergies and Adverse Reactions Type Description Substance Reaction Status Data Source(s ) No Known Environmental Allergies No Known Environmental Al lergies [facility] No Known Food Allergies No Known Food Allergies [facility] Drug allergy CODEINE CODEINE RASH [facility] Codeine Sulfate Codeine Sulfate Codeine Sulfate Rash Active eCW1 ([facility]) Family History Family Member Name Family Member Gender Family Member Status Date o f Status Description Data Source(s) Unknown Unknown Problem MEDENT ([facility]) Unknown Male Problem MEDENT ([facility]) () Unknown Male Problem MEDENT ([facility] Unknown Unknown Problem MEDENT ([facility] Unknown Unknown Problem MEDENT ([facility]) Unknown Unknown Problem MEDENT ([facility]) Unknown Unknown Problem MEDENT ([facility]) Unknown Unknown Problem MEDENT ([facility]) Encounters Encounter Providers Location Date Indications Data Source(s ) [facility] [address] [place] [address], Ph. Attender: Crystal Mendez [facility] Medical 10/03/2020 12:00:00 AM EST MARGARETH ([facility]) Crystal Mendez [facility]: [address], [place] [address], Ph. Attender: Crystal Mendez [facility] Medical 08/29/2020 12:00:00 AM EST MARGARETH ([facility]) [facility] [address], [place] [address], Ph. Attender: Crystal Mendez [facility] Medical 08/22/2020 12:00:00 AM EST MARGARETH ([facility]) Crystal Mendez [facility]: [address], [place] [address], Ph. Attender: Crystal Mendez [facility] Medical 08/22/2020 12:00:00 AM EST MARGARETH ([facility]) Emergency Attender: MARIA LUZ YOUNG MD 2019 12:19:00 PM EDT - 05/10/2020 12:46:00 PM EDT [facility] Patient discharged. [place] [address] [facility] [facility] [address] [address] 02/28/2020 12:00:00 AM EDT eCW1 ([facility]) [facility] [place] [address] [address] 01/16/2020 12:00:00 AM EDT eCW1 ([facility]) [facility] [address] [address] 12/28/2019 12:00:00 AM EDT eCW1 ([facility]) [facility] GME Resident [address] [place] [address] 11/28/2019 12:00:00 AM EDT eCW1 ([facility]) [facility] [address] [place] [address], [place] [address] 10/28/2019 12:00:00 AM EST eCW1 ([facility]) [address] [address] 10/27/2019 12:00:00 AM EST eCW1 ([facility]) [facility] [address] [place] [address], [place] [address] 10/24/2019 12:00:00 AM EST eCW1 ([facility]) [facility] [address] [place] [address], [place] [address] 10/12/2019 12:00:00 AM EST eCW1 ([facility]) Outpatient 09/26/2019 06:13:00 AM EST [facility] [address] [place] [address], [place] [address] 09/15/2019 12:00:00 AM EST eCW1 ([facility]) Immunizations Vaccine Date Status Description Data Source(s) New in 2011. IIV4 08/24/2020 07:28:00 AM EST completed 0.5 mL MARGARETH ([facility] er) New in 2011. IIV4 08/24/2020 07:28:00 AM EST completed 0.5 mL MARGARETH ([facility]) Medications Medication Brand Name Start Date Product Form Dose Route Admi nistrative Instructions Pharmacy Instructions Status Indications Reaction Description Data Source(s) 90 mcg/actuation 08/23/2020 12:00:00 AM EST HFA aerosol inha ler 18 INHALE 1 PUFF BY MOUTH EVERY 4 HOURS NEEDED INHALE 1 PUFF BY MOUTH EVERY 4 HOURS NEEDED SOLD: 08/23/2020 [facility] 81 mg 08/23/2020 12:00:00 AM EST tablet,delayed release (DR/EC) 30 TAKE ONE TABLET BY MOUTH EVERY DAY DIRECTED TAKE ONE TABLET BY MOUTH EVERY DAY DIRECTED SOLD: 09/25/2020 [facility] Metformin hydrochloride 1000 MG Oral Tablet 1,000 mg METFORM IN HCL 08/23/2020 12:00:00 AM EST tablet 60 TAKE ONE TABLET BY MOUTH TWICE A DAY DIRECTED TAKE ONE TABLET BY MOUTH TWICE A DAY DIRECTED SOLD: 08/23/2020 [facility] 81 mg 08/23/2020 12:00:00 AM EST tablet,delayed release (DR/EC) 30 TAKE ONE TABLET BY MOUTH EVERY DAY DIRECTED TAKE ONE TABLET BY MOUTH EVERY DAY DIRECTED SOLD: 08/23/2020 [facility] 10 mg 08/23/2020 12:00:00 AM EST tablet 60 TAKE ONE TABLET BY MOUTH TWICE A DAY DIRECTED TAKE ONE TABLET BY MOUTH TWICE A DAY DIRECTED SOLD: 09/25/2020 [facility] Metformin hydrochloride 1000 MG Oral Tablet 1,000 mg METFORM IN HCL 08/23/2020 12:00:00 AM EST tablet 60 TAKE ONE TABLET BY MOUTH TWICE A DAY DIRECTED TAKE ONE TABLET BY MOUTH TWICE A DAY DIRECTED SOLD: 09/25/2020 [facility] 10 mg 08/23/2020 12:00:00 AM EST tablet 60 TAKE ONE TABLET BY MOUTH TWICE A DAY DIRECTED TAKE ONE TABLET BY MOUTH TWICE A DAY DIRECTED SOLD: 08/23/2020 [facility] 81 mg 12/29/2019 12:00:00 AM EDT tablet,delayed release (DR/EC) 30 TAKE ONE TABLET BY MOUTH EVERY DAY TAKE ONE TABLET BY MOUTH EVERY DAY SOLD: 05/07/2020 [facility] 81 mg 12/29/2019 12:00:00 AM EDT tablet,delayed release (DR/EC) 30 TAKE ONE TABLET BY MOUTH EVERY DAY TAKE ONE TABLET BY MOUTH EVERY DAY SOLD: 03/10/2020 [facility] 81 mg 12/29/2019 12:00:00 AM EDT tablet,delayed release (DR/EC) 30 TAKE ONE TABLET BY MOUTH EVERY DAY TAKE ONE TABLET BY MOUTH EVERY DAY SOLD: 06/10/2020 [facility] 81 mg 12/29/2019 12:00:00 AM EDT tablet,delayed release (DR/EC) 30 TAKE ONE TABLET BY MOUTH EVERY DAY TAKE ONE TABLET BY MOUTH EVERY DAY SOLD: 01/05/2020 [facility] 81 mg 12/29/2019 12:00:00 AM EDT tablet,delayed release (DR/EC) 30 TAKE ONE TABLET BY MOUTH EVERY DAY TAKE ONE TABLET BY MOUTH EVERY DAY SOLD: 07/13/2020 [facility] 90 mcg/actuation 11/28/2019 12:00:00 AM EDT HFA aerosol inha ler 18 INHALE 1 PUFF BY MOUTH NEEDED EVERY 4 HOURS INHALE 1 PUFF BY MOUTH NEEDED EVERY 4 HOURS SOLD: 11/28/2019 [facility] 200 ACTUAT Albuterol 0.09 MG/ACTUAT Mete red Dose Inhaler [Ventolin] Ventolin HFA 108 (90 Base) MCG/ACT Ventolin HFA 108 (90 Base) MCG/ACT 11/28/2019 12:00:00 AM EDT active 1 puff as needed eCW1 ([facility]) 20 mg 11/28/2019 12:00:00 AM EDT capsule,delayed release (DR/EC) 30 TAKE ONE CAPSULE BY MOUTH EVERY DAY DIRECTED TAKE ONE CAPSULE BY MOUTH EVERY DAY DIRECTED SOLD: 11/28/2019 [facility] 10 mg 11/28/2019 12:00:00 AM EDT tablet 60 TAKE 1 TABLET BY MOUTH TWO TIMES A DAY TAKE 1 TABLET BY MOUTH TWO TIMES A DAY SOLD: 06/25/2020 [facility] Omeprazole 20 MG Delayed Release Oral Tablet Omeprazole 20 M G 11/28/2019 12:00:00 AM EDT active as direc hardeep eCW1 ([facility]) 10 mg 11/28/2019 12:00:00 AM EDT tablet 60 TAKE 1 TABLET BY MOUTH TWO TIMES A DAY TAKE 1 TABLET BY MOUTH TWO TIMES A DAY SOLD: 03/10/2020 [facility] 10 mg 11/28/2019 12:00:00 AM EDT tablet 60 TAKE 1 TABLET BY MOUTH TWO TIMES A DAY TAKE 1 TABLET BY MOUTH TWO TIMES A DAY SOLD: 02/03/2020 [facility] 10 mg 11/28/2019 12:00:00 AM EDT tablet 60 TAKE 1 TABLET BY MOUTH TWO TIMES A DAY TAKE 1 TABLET BY MOUTH TWO TIMES A DAY SOLD: 12/27/2019 [facility] 10 mg 11/28/2019 12:00:00 AM EDT tablet 60 TAKE 1 TABLET BY MOUTH TWO TIMES A DAY TAKE 1 TABLET BY MOUTH TWO TIMES A DAY SOLD: 05/07/2020 [facility] 10 mg 11/28/2019 12:00:00 AM EDT tablet 60 TAKE 1 TABLET BY MOUTH TWO TIMES A DAY TAKE 1 TABLET BY MOUTH TWO TIMES A DAY SOLD: 11/28/2019 [facility] 200 ACTUAT Albuterol 0.09 MG/ACTUAT Mete red Dose Inhaler [Ventolin] Ventolin HFA 108 (90 Base) MCG/ACT Ventolin HFA 108 (90 Base) MCG/ACT 11/28/2019 12:00:00 AM EDT 1.0 {puff_as_needed} active Wilber tolin HFA 108 (90 Base) MCG/ACT eCW1 ([facility]) 20 mg 11/28/2019 12:00:00 AM EDT capsule,delayed release (DR/EC) 30 TAKE ONE CAPSULE BY MOUTH EVERY DAY DIRECTED TAKE ONE CAPSULE BY MOUTH EVERY DAY DIRECTED SOLD: 12/27/2019 [facility] 2.5 mg /3 mL (0.083 %) 11/28/2019 12:00:00 AM EDT solu tion for nebulization 300 USE 1 VIAL BY NEBULIZER THREE TIMES A DA Y USE 1 VIAL BY NEBULIZER THREE TIMES A DAY SOLD: 11/28/2019 [facility] 5 mg 11/23/2019 12:00:00 AM EDT tablet 30 TAKE ONE TABLET BY MOUTH 30 MINUTES BEFORE BREAKFAST ONCE A DAY TAKE ONE TABLET BY MOUTH 30 MINUTES BEFO RE BREAKFAST ONCE A DAY SOLD: 11/23/2019 [facility] 5 mg 11/19/2019 12:00:00 AM EDT tablet 60 TAKE ONE TABLET BY MOUTH TWICE A DAY TAKE ONE TABLET BY MOUTH TWICE A DAY SOLD: 06/10/2020 [facility] 5 mg 11/19/2019 12:00:00 AM EDT tablet 60 TAKE ONE TABLET BY MOUTH TWICE A DAY TAKE ONE TABLET BY MOUTH TWICE A DAY SOLD: 07/13/2020 [facility] 5 mg 11/19/2019 12:00:00 AM EDT tablet 60 TAKE ONE TABLET BY MOUTH TWICE A DAY TAKE ONE TABLET BY MOUTH TWICE A DAY SOLD: 11/23/2019 [facility] 5 mg 11/19/2019 12:00:00 AM EDT tablet 60 TAKE ONE TABLET BY MOUTH TWICE A DAY TAKE ONE TABLET BY MOUTH TWICE A DAY SOLD: 04/21/2020 [facility] 75 mg 10/26/2019 12:00:00 AM EST capsule 10 TAKE ONE CAPSULE BY MOUTH TWICE A DAY FOR 5 DAYS TAKE ONE CAPSULE BY MOUTH TWICE A DAY FOR 5 DAYS SOLD: 10/26/2019 [facility] 150 mg 08/20/2019 12:00:00 AM EST tablet 60 TAKE TWO TABLETS BY MOUTH AT BEDTIME TAKE TWO TABLETS BY MOUTH AT BEDTIME SOLD: 11/10/2019 [facility] 150 mg 08/20/2019 12:00:00 AM EST tablet 60 TAKE TWO TABLETS BY MOUTH AT BEDTIME TAKE TWO TABLETS BY MOUTH AT BEDTIME SOLD: 10/03/2019 [facility] BLOOD SUGAR DIAGNOSTIC 08/17/2019 12:00:00 AM EST strip 100 USE TO TEST THREE TIMES A DAY NEEDED UNDER THE SKIN USE TO TEST THREE TIMES A DAY NEEDED UNDER THE SKIN SOLD: 11/10/2019 [facility] 1,000 mg 06/18/2019 12:00:00 AM EDT tablet 60 TAKE ONE TABLET BY MOUTH TWICE A DAY WITH MEALS TAKE ONE TABLET BY MOUTH TWICE A DAY WITH MEALS SOLD: 03/10/2020 [facility] 1,000 mg 06/18/2019 12:00:00 AM EDT tablet 60 TAKE ONE TABLET BY MOUTH TWICE A DAY WITH MEALS TAKE ONE TABLET BY MOUTH TWICE A DAY WITH MEALS SOLD: 11/10/2019 [facility] 1,000 mg 06/18/2019 12:00:00 AM EDT tablet 60 TAKE ONE TABLET BY MOUTH TWICE A DAY WITH MEALS TAKE ONE TABLET BY MOUTH TWICE A DAY WITH MEALS SOLD: 12/27/2019 [facility] 1,000 mg 06/18/2019 12:00:00 AM EDT tablet 60 TAKE ONE TABLET BY MOUTH TWICE A DAY WITH MEALS TAKE ONE TABLET BY MOUTH TWICE A DAY WITH MEALS SOLD: 10/03/2019 [facility] Metformin hydrochloride 1000 MG Oral Tablet 1,000 mg METFORM IN HCL 06/18/2019 12:00:00 AM EDT tablet 60 TAKE ONE TABLET BY MOUTH TWICE A DAY WITH MEALS TAKE ONE TABLET BY MOUTH TWICE A DAY WITH MEALS SOLD: 05/07/2020 [facility] Metformin hydrochloride 1000 MG Oral Tablet 1,000 mg METFORM IN HCL 06/18/2019 12:00:00 AM EDT tablet 60 TAKE ONE TABLET BY MOUTH TWICE A DAY WITH MEALS TAKE ONE TABLET BY MOUTH TWICE A DAY WITH MEALS SOLD: 06/10/2020 [facility] 5 mg 05/04/2019 12:00:00 AM EDT tablet 60 TAKE ONE TABLET BY MOUTH TWICE A DAY TAKE ONE TABLET BY MOUTH TWICE A DAY SOLD: 09/22/2019 [facility] 5 mg 05/04/2019 12:00:00 AM EDT tablet 60 TAKE ONE TABLET BY MOUTH TWICE A DAY TAKE ONE TABLET BY MOUTH TWICE A DAY SOLD: 10/26/2019 [facility] 81 mg 03/31/2019 12:00:00 AM EDT tablet,delayed release (DR/EC) 30 TAKE ONE TABLET BY MOUTH EVERY DAY TAKE ONE TABLET BY MOUTH EVERY DAY SOLD: 10/03/2019 [facility] 0.1 % 01/12/2019 12:00:00 AM EDT ointment 15 APPLY TO AFFECTED AREA TWO TIMES A DAY TO ITCHY AREAS ON BODY - NOT FOR FACE, GROIN, ARMPITS APPLY TO AFFECTED AREA TWO TIMES A DAY TO ITCHY AREAS ON BODY - NOT FOR FACE, GROIN, ARMPITS SOLD: 09/22/2019 [facility] 0.1 % 01/12/2019 12:00:00 AM EDT ointment 15 APPLY TO AFFECTED AREA TWO TIMES A DAY TO ITCHY AREAS ON BODY - NOT FOR FACE, GROIN, ARMPITS APPLY TO AFFECTED AREA TWO TIMES A DAY TO ITCHY AREAS ON BODY - NOT FOR FACE, GROIN, ARMPITS SOLD: 10/26/2019 [facility] Oseltamivir 75 MG Oral Capsule oseltamivir 75 mg capsu le oseltamivir 75 mg capsule completed oseltamivir 75 MG Oral Capsule MARGARETH ([facility]) Glipizide 5 MG Oral Tablet glipizide 5 m g tablet TAKE ONE TABLET BY MOUTH TWICE A DAY glipizide 5 mg tablet TAKE ONE TABLET BY MOUTH TWICE A DAY completed glipizide 5 MG Oral Tablet ATHEN A ([facility]) Oseltamivir 75 MG Oral Capsule oseltamivir 75 mg capsu le oseltamivir 75 mg capsule completed oseltamivir 75 MG Oral Capsule MARGARETH ([facility]) Ranitidine 150 MG Oral Tablet ranitidine 150 mg tablet ranit idine 150 mg tablet completed ranitidine 150 MG Oral Tablet MARGARETH ([facility]) Ranitidine 150 MG Oral Tablet ranitidine 150 mg tablet ranit idine 150 mg tablet completed ranitidine 150 MG Oral Tablet MARGARETH ([facility]) Insurance Providers Payer name Policy type / Coverage type Policy ID Covered green party ID Covered green party's relationship to kay Policy Kay Plan Information [facility] [id number] SP [id number] [facility] XIX [id number] 18 [id number] [facility] [id number] SP [id number] [facility] O [id number] S [id number] [facility] [id number] SP [id number] ANSI-Medicaid [id number] ANSI-Medicaid [id number] ANSI-Medicaid [id number] Medicaid [place] Medig[place] Part [place] [id number] Self [id number] [facility] Community Plan Commercial [id number] Self [id number] [facility] Community Plan Medigap Part B [id number] Self [id number] [employer] (pr) Medigap Part B [id number] Self [id number] [place] [id number] Self [id number] [facility] Community Plan Commercial [id number] Self [id number] ANSI-Medicaid [id number] ANSI-Medicaid [id number] ANSI-Medicaid [id number] ANSI-Medicaid [id number] ANSI-Medicaid [id number] ANSI-Medicaid [id number] [facility] [id number] SP [id number] [facility] [id number] SP [id number] [facility] [id number] SP [id number] ANSI-Medicaid [id number] ANSI-Medicaid [id number] ANSI-Medicaid [id number] ANSI-Medicaid [id number] ANSI-Medicaid [id number] ANSI-Medicaid [id number] ANSI-Medicaid [id number] ANSI-Medicaid [id number] ANSI-Medicaid [id number] ANSI-Medicaid [id number] [facility] [id number] [facility] Health Maintenance Organization (HMO) [id number] Self [id number] ANSI-Medicaid [id number] ANSI-Medicaid [id number] ANSI-Medicaid [id number] ANSI-Medicaid [id number] ANSI-Medicaid [id number] ANSI-Medicaid [id number] ANSI-Medicaid [id number] ANSI-Medicaid [id number] ANSI-Medicaid [id number] ANSI-Medicaid [id number] [facility]) O [id number] S [id number] ANSI-Medicaid [id number] ANSI-Medicaid [id number] ANSI-Medicaid [id number] ANSI-Medicaid [id number] [facility] [id number] SP [id number] [place] [id number] Self [id number] [facility] Community Plan Commercial [id number] Self [id number] [facility] [id number] SP [id number] [place]ig[place] Part B [id number] Self [id number] [facility] [id number] SP [id number] [facility] [id number] SP [id number] [employer] COMMUNITY PLAN MCDO [id number] SP [id number] MEDICAID [id number] SP [id number] [facility] [place] [id number] SP [id number] [facility] [place] [id number] SP [id number] [employer] [facility] [id number] SP [id number] [facility] [place] [id number] SP [id number] [facility] [id number] [place] [id number] SELF PAY UNAVAILABLE SP UNAVAILA BLE United [facility]CR/Community [facility] Health Maintenance Organization (HMO) Self [facility] Community Plan Commercial Self [employer] AMERICHOICE XIX -HMO [id number] 18 [id number] [facility] [facility] [place] O [id number] S [id number] MEDICAID S [id number] S [id number] [facility]) P [id number] S [id number] [place] [id number] [place] [id number] Problems, Conditions, and Diagnoses Code Display Name Description Problem Type Effective Dates Data Source(s) D05013 [address] in unspeci fied non-institutional (private) residence as the place of occurrence of the external cause Unspecified place in unspecified non-institutional (private) residence as the place of occurrence of the external cause Diagnosis 05/10/2020 12:19:00 PM EDT [facility] [id number] Contact with other sharp obj ect(s), not elsewhere classified, initial encounter Contact with other sharp object(s), not elsewhere classified, initial encounter Diagnosis 05/10/2020 12:19:00 PM EDT [facility] [id number] penitentiary (current) use of oral hypoglyc emic drugs penitentiary (current) use of oral hypoglycemic drugs Diagnosis 05/10/2020 12:19:00 PM EDT [facility] Z23 Encounter for immunization Encounter for immunization Diagnosis 05/10/2020 12:19:00 PM EDT [facility] E119 Type 2 diabetes mellitus without complic ations Type 2 diabetes mellitus without complications Diagnosis 05/10/2020 12:19:00 PM EDT [facility] [id number] Unspecified asthma, uncomplicated Unspecified as thma, uncomplicated Diagnosis 05/10/2020 12:19:00 PM EDT [facility] [id number] Laceration without foreign b lester of right little finger without damage to nail, initial encounter Laceration without foreign body of right little finger without damage to nail, initial encounter Diagnosis 05/10/2020 12:19:0 0 PM EDT [facility] [id number] Unspecified superficial inju ry of right little finger, initial encounter Unspecified superficial injury of right little finger, initial encounter Diagnosis 05/10/2020 12:19:00 PM EDT [facility] Surgeries/Procedures Procedure Description Date Indications Data Source(s) MAMMO, screening, digital, bilateral 10/03/2020 12:00: 00 AM ADRIA ZULUAGA ([facility]) Results ID Date Data Source [id number] 08/29/2020 08:15:00 AM ADRIA ZULUAGA ([facility]) Name Value Range Interpretation Code Description Data Malathi rce(s) Supporting Document(s) total 25(oh) vitamin D 49.9 NG/mL 30.0-100.0 normal Total 25(Oh) Vitamin D [place] ([facility]) ID Date Data Source [id number] 08/29/2020 08:15:00 AM ADRIA ZULUAGA ([facility]) Name Value Range Interpretation Code Description Data Malathi rce(s) Supporting Document(s) free T4 1.01 NG/dL 0.76-1.46 normal Free T4 [place] ([facility]) thyroid stimulating hormone 0.546 uIU/mL 0.358-3.740 normal Thyroid Stimulating Hormone [place] ([facility]) ID Date Data Source [id number] 08/29/2020 08:15:00 AM ADRIA LEBRONENA ([facility]) Name Value Range Interpretation Code Description Data Malathi rce(s) Supporting Document(s) HDL cholesterol 56 mg/dL >40 normal HDL Cholesterol ATHE NA ([facility]) Cholesterol in LDL [Mass/volume] in Serum or Plasma 95 mg/dL <1 00 normal LDL Cholesterol MARGARETH ([facility]) triglycerides level 79 mg/dL <150 normal Triglycerides Le mikayla MARGARETH ([facility]) cholesterol level 167 mg/dL <200 normal Cholesterol Level MARGARETH ([facility]) non-HDL-C 111 mg/dL normal Non-hdl-c MARG[place] ([facility]) cholesterol risk ratio <5 normal Cholesterol R isk Ratio [place] ([facility]) ID Date Data Source [id number] 08/29/2020 08:15:00 AM EST MARGARETH ([facility]) Name Value Range Interpretation Code Description Data Malathi rce(s) Supporting Document(s) glucose, fasting 268 mg/dL 70-100 Above high normal Glucose, Fas ting [place] ([facility]) blood urea nitrogen 13 mg/dL 7-18 normal Blood Urea Nitro gen [place] ([facility]) creatinine for GFR 0.71 mg/dL 0.55-1.30 normal Creatinine for GF R [place] ([facility]) sodium level 139 mEq/L 136-145 normal Sodium Level MARG[place] ([facility]) glomerular filtration rate > 60.0 >45 normal Glomerula r Filtration Rate [place] ([facility]) chloride level 105 mEq/L 98-107 normal Chloride Level [place] ([facility]) potassium serum 5.0 mEq/L 3.5-5.1 normal Potassium Serum [facility]) carbon dioxide level 31 mEq/L 21-32 normal Carbon Dioxide Level [place] ([facility]) anion gap 3 mEq/L 8-16 Below low normal Anion Gap MARG[place] ( [facility]) ALT/SGPT 37 U/L 12-78 normal ALT/SGPT [place] ([facility]) calcium level 9.1 mg/dL 8.8-10.2 normal Calcium Level MARGAR[place] ( [facility]) AST/SGOT 15 U/L 7-37 normal AST/SGOT [place] ([facility]) alkaline phosphatase 73 U/L 45-117 normal Alkaline Phosph atase MARG[place] ([facility]) total protein 7.1 gm/dL 6.4-8.2 normal Total Protein [place] ( [facility]) albumin/globulin ratio 1.2-2.2 normal Albumin/globu desirae Ratio MARG[place] ([facility]) albumin 3.9 gm/dL 3.2-5.2 normal Albumin [place] ([facility]) bilirubin,total 0.4 mg/dL 0.2-1.0 normal Bilirubin,total ATHE NA ([facility]) ID Date Data Source [id number] 08/29/2020 08:15:00 AM EST MARGARETH ([facility]) Name Value Range Interpretation Code Description Data Malathi rce(s) Supporting Document(s) estimated average glucose 252 mg/dL 60-110 Above high norm al Estimated Average Glucose [place] ([facility]) Hemoglobin A1c/Hemoglobin.total in Blood 10.4 % normal Hemoglobin a1C [place] ([facility]) ID Date Data Source [id number] 08/29/2020 08:15:00 AM EST MARGARETH ([facility]) Name Value Range Interpretation Code Description Data Malathi rce(s) Supporting Document(s) white blood count 4.6 10 4.0-10.0 normal White Blood Count MARGAR[place] ([facility]) hematocrit 41.1 % 36.0-47.0 normal Hematocrit [place] ([facility]) hemoglobin 13.4 g/dL 12.0-15.5 normal Hemoglobin [place] ([facility]) red blood count 4.51 10 4.00-5.40 normal Red Blood Count ATHE NA ([facility]) mean corpuscular hemoglobin 29.7 pg 27.0-33.0 normal Mean Corpuscular Hemoglobin M[place]AR[place] ([facility]) mean corpuscular HGB conc 32.6 g/dL 32.0-36.5 normal Mean Corpu scular HGB Conc MARG[facility] ([facility]) mean corpuscular volume 91.1 fL 80.0-96.0 normal Mean Corpusc ular Volume MARG[place] ([facility]) platelet count, automated 218 10 150-450 normal Platelet C ount, Automated [place] ([facility]) neutrophils % 46.9 % 36.0-66.0 normal Neutrophils % [facility] ( [facility]) lymph % 40.1 % 24.0-44.0 normal Lymph % MARGAR[facility] ([facility]) red cell distribution width 11.9 % 11.5-14.5 normal Red Cell Distribution Width MARGAR[facility] ([facility]) mono % 8.9 % 0.0-5.0 Above high normal Teller % MARGARETH ([facility]) baso % 0.4 % 0.0-1.0 normal Baso % MARGARETH ([facility]) eos % 3.5 % 0.0-3.0 Above high normal Eos % [facility] ([facility]) nucleated red blood cell % 0.0 % 0-0 normal Nucleated Red Blood Cell % M[facility] ([facility]) lymph # 1.9 10 1.5-5.0 normal Lymph # [place] ([facility]) neutrophils # 2.2 10 1.5-8.5 normal Neutrophils # [place] ( [facility]) immature granulocyte % 0.2 % 0-3.0 normal Immature Gran ulocyte % [place] ([facility]) eos # 0.2 10 0.0-0.5 normal Eos # [place] ([facility]) baso # 0.0 10 0.0-0.2 normal Baso # [place] ([facility]) mono # 0.4 10 0.0-0.8 normal Teller # MARG[place] ([facility]) ID Date Data Source PLZ LIVER 07/05/2020 11:16:21 AM EDT eCW1 ([facility]) Name Value Range Interpretation Code Description Data Malathi rce(s) Supporting Document(s) [facility] ID Date Data Source [id number] 05/10/2020 12:19:00 PM EDT [facility] 1 OrderSheet [facility] Emergency Department [address] [place] [address] Phone #: ext- [phone] 05/10/2020 12:09 Patient: AGATHA WISE Sex: F : 1955 Age: 64yWEIGHT:72.5 kg (S) HEIGHT:63 inches (S) BMI:28.3ALLERGIES: Codeine SulfateCHIEF COMPLAINT: Rt, little fingerDIAGNOSIS: Laceration - InjuryLAB ORDERSOrder Description Priority Entered Acknowledged InitialedDIAGNOSTIC STUDY ORDERSOrder Description Priority Entered Acknowledged InitialedMEDICATION/IV/DRIP/FLUID ORDERSOrder Description Priority Entered Acknowledged InitialedTdap IM 0.5 mL 12:38 05/10/2020 12:42 Rex Araujo R.N.;GENERAL ORDERSOrder Description Priority Entered Acknowledged Initialed[Electronically signed by Evelyne Araujo R.N. (12:46 05/10/2020)][Electronically signed by Rex Retana (21:41 05/10/2020)][Electronically locked by Evelyne Araujo R.N. (12:46 05/10/2020)] Name Value Range Interpretation Code Description Data Malathi rce(s) Supporting Document(s) ID Date Data Source [id number] 05/10/2020 12:19:00 PM EDT [facility] 1 Medication Reconciliation Report [facility] Emergency Department [address] [place] [address] Phone #: ext- [phone] 05/10/2020 12:09 Patient: AGATHA WISE Sex: F : 1955 Age: 64yWeight: 72.5 kgHeight/Length: 63 in.BMI: 28.3ALLERGIES: Codeine SulfateThe patient's Home Medications are listed below:CONTINUE TAKING THE FOLLOWING MEDICATIONS: glipiZIDE Oral 10 mg, 2x a day metFORMIN HCl Oral (1000 mg) 1 tablet, 2x a day ProAir HFA Inhalation 2 puffs, prnThe source(s) of the original Home Medication information:patientThe following Medications were given to the patient in the Emergency Department:TDAP [IM] IM 0.5 mL, administered: 05/10/2020 12:42:00 PMThe following Medications were prescribed to the patient:None. Name Value Range Interpretation Code Description Data Malathi rce(s) Supporting Document(s) ID Date Data Source [id number] 05/10/2020 12:19:00 PM EDT [facility] 1 Medication Administration Record [facility] Emergency Department [address] [place] [address] Phone #: prk- [phone] 05/10/2020 12:09 Patient: AGATHA WISE Sex: F : 1955 Age: 64yWeight: 72.5 kgHeight/Length: 63 inBMI: 28.3ALLERGIES: Codeine Sulfate Date/Time Medication Administered Medication OrderedGiven TDAP [IM] Tdap IM 0.5 mL12:42 05/10/2020 Dose: 0.5 mL Evelyne Lemons R.N. Name Value Range Interpretation Code Description Data Malathi rce(s) Supporting Document(s) ID Date Data Source [id number] 05/10/2020 12:19:00 PM EDT [facility] 1 General Instructions [facility] Emergency Department [address] [place] [address] Phone #: ext- [phone] 05/10/2020 12:09 Patient: AGATHA WISE Sex: F : 1955 Age: 64y Single superficial laceration to the right little finger. No foreign body present or right fingernail injury.INSTRUCTIONS Your Current Medications: Your current home medications have been reviewed. CONTINUE TAKING THE FOLLOWING MEDICATIONS: glipiZIDE Oral : 10 mg 2x a day. metFORMIN HCl Oral : Tablet 1000 mg, 1 tablet 2x a day. ProAir HFA Inhalation : 2 puffs, prn. Follow-up: Follow up with your doctor as needed. Reason for referral: evaluation and treatment. Summary of care provided to patient. Understanding of the discharge instructions verbalized by patient. ADDITIONAL INFORMATIONLaceration: All ClosuresA laceration is a cut through the skin. This will usually require stitches (sutures) or jesus if it is deep.Minor cuts may be treated with a surgical tape closure or skin glue. 2 General Instructions [facility] Emergency Department [address] [place] [address] Phone #: ext- [phone] 05/10/2020 12:09 Patient: AGATHA WISE Sex: F : 1955 Age: 64yHome care Your healthcare provider may prescribe an antibiotic. This is to help prevent infection. Follow all instructions for taking this medicine. Take the medicine every day until it is gone or you are told to stop. You should not have any left over. The healthcare provider may prescribe medicines for pain. If no pain medicines were prescribed, you can use epsy-zqq-ocsfotr pain medicines. Follow instructions for taking any pain medicines. (Note: If you have chronic liver or kidney disease, or ever had a stomach ulcer or gastrointestinal bleeding, talk with your doctor before using these medicines.) Follow the healthcare provider's instructions on how to care for the cut. Keep the wound clean and dry. Do not get the wound wet until you are told it is OK to do so. If the area gets wet, gently pat it dry with a clean cloth. Replace the wet bandage with a dry one. If a bandage was applied and it becomes wet or dirty, replace it. Otherwise, leave it in place for the first 24 hours. Caring for sutures or jesus: Once you no longer need to keep them dry, clean the wound daily. First, remove the bandage. Then wash the area gently with soap and warm water, or as directed by the healthcare provider. Use a wet cotton swab to loosen and remove any blood or crust that forms. After cleaning, apply a thin layer of antibiotic ointment if advised. Then put on a new bandage unless you are told not to. Caring for skin glue: Don't put apply liquid, ointment, or cream on the wound while the glue is 3 General Instructions [facility] Emergency Department [address] [place] [address] Phone #: ext- [phone] 05/10/2020 12:09 Patient: AGATHA WISE Sex: F : 1955 Age: [address] Avoid activities that cause heavy sweating. Protect the wound from sunlight. Do not scratch, rub, or pick at the adhesive film. Do not place tape directly over the film. The glue should peel off within 5 to 10 days. Caring for surgical tape: Keep the area dry. If it gets wet, blot it dry with a clean towel. Surgical tape usually falls off within 7 to 10 days. If it has not fallen off after 10 days, you can take it off yourself. Put mineral oil or petroleum jelly on a cotton ball and gently rub the tape until it is removed. Once you can get the wound wet, you may shower as usual but do not soak the wound in water (no tub baths or swimming) Even with proper treatment, a wound infection may sometimes occur. Check the wound daily for signs of infection listed below.Scalp woundsDuring the first 2 days, you may carefully rinse your hair in the shower to remove blood, glass or dirtparticles. After two days, you may shower and shampoo your hair normally. Do not soak your scalp inthe tub or go swimming until the stitches or jesus have been removed. Talk with your healthcareprovider before applying any antibiotic ointment to the wound.Mouth woundsEat soft foods to reduce pain. If the cut is inside of your mouth, clean by rinsing after each meal andat bedtime with a mixture of equal parts water and hydrogen peroxide (do not swallow!). Or, you canuse a cotton swab to directly apply hydrogen peroxide onto the cut. You may also be prescribed achlorhexidine solution to rise with. Mouth wounds can be painful when eating. You may use rrrncv-uak-knhkdcq local numbing solution for pain relief. If this is not available, you may use anynumbing solution intended for teething babies. You may apply this directly to the sores with acotton-tip swab or with your finger.Follow-up careFollow up with your healthcare provider as advised. Ask your healthcare provider how long suturesshould be left in place. Be sure to return for suture removal as directed. If dissolving stitches wereused in the mouth, these should fall out or dissolve without the need for removal. If tape closureswere used, remove them yourself when your provider recommends if they have not fallen off on theirown. If skin glue was used, the film will wear off by itself. Generally, you should keep healing woundsout of direct sunlight for the first couple of months to try to lessen scarring.When to seek medical adviceCall your healthcare provider right away if any of these occur: 4 General Instructions [facility] Emergency Department [address] [place] [address] Phone #: ext- [phone] 05/10/2020 12:09 Patient: AGATHA WISE Sex: F : 1955 Age: 64y Signs of infection, including increasing pain in the wound, increasing wound redness or swelling, or pus or bad odor coming from the wound Fever of 100.4F (38.C) or higher, or as directed by your healthcare provider Stitches or jesus come apart or fall out or surgical tape falls off before 7 days Wound edges reopen Wound changes colors Numbness around the wound after any numbing medicine should have worn off Decreased movement around the injured areaCall 911Call 911 if you can't control the wound bleeding with direct pressure. 1999- 2017 [employer]. [address] [place] [address]. All rights reserved. This information is not intended as asubstitute for professional medical care. Always follow your healthcare professional's instructions.Face Laceration: Skin Glue A laceration is a cut through the skin. A laceration on yourface has been closed with skin glue. This is used on cuts that have smooth edges, and are notinfected. Skin glue is best used on clean, straight cuts on face in areas that don't get a lot of tension. 5 General Instructions [facility] Emergency Department [address] [place] [address] Phone #: ext- [phone] 05/10/2020 12:09 Patient: AGATHA WISE Sex: F : 1955 Age: 64yIn some cases, a lower layer of skin may be sutured before skin glue is put on. The skin glue closesthe cut within a few minutes. It also provides a water- resistant cover. No bandage is needed. Skinglue peels off on its own within 5 to 10 days.Home care Your healthcare provider may prescribe an antibiotic. This is to help prevent infection. Follow all instructions for taking this medicine. Take the medicine every day until it is gone or you are told to stop. You should not have any left over. The healthcare provider may prescribe medicines for pain. Follow instructions for taking them. Follow the healthcare provider's instructions on how to care for the cut. Keep the wound clean and dry. You may shower or bathe as usual, but do not use soaps, lotions, or ointments on the wound area, as these may dissolve the glue. Don't scrub the wound. After bathing, pat the wound dry with a soft towel. Don't soak the cut in water. Don't scratch, rub, or pick at the film. Don't place tape directly over the film. Don't apply liquids such as peroxide, ointments, or creams to the wound while the film is in place. Most facial skin wounds heal without problems. But an infection sometimes occurs despite proper treatment. Watch for the signs of infection listed below. Keep the wound out of prolonged direct sunlight, especially in the summer months. Sunburn or sun exposure can increase scarring.Follow-up careFollow up with your healthcare provider, or as advised. If skin glue was used, the film will fall off byitself in 5 to10 days.When to seek medical adviceCall your healthcare provider right away if any of these occur: Wound bleeds more than a small amount or bleeding doesn't stop Decreased movement around the injured area Signs of infection: o Increasing pain in the wound o Increasing wound redness or swelling 6 General Instructions [facility] Emergency Department [address] [place] [address] Phone #: ext- [phone] 05/10/2020 12:09 Patient: AGATHA WISE Sex: F : 1955 Age: 64y o Pus or bad odor coming from the wound o Fever of 100.4F (38.C) or as directed by your healthcare provider Wound edges reopen [phone] [employer]. [address] [place] [address], [place] [address]. All rights reserved. This information is not intended as asubstitute for professional medical care. Always follow your healthcare professional's instructions. You have been given the following additional information: Laceration: All Closures Laceration, Face: Skin Glue(Electronically signed by YULIET Gonzalez 05/10/2020 21:41) Name Value Range Interpretation Code Description Data Malathi rce(s) Supporting Document(s) ID Date Data Source [id number] 05/10/2020 12:19:00 PM EDT [facility] 1 Clinical Report - Nurses [facility] Emergency Department [address] [place] [address] Phone #: ext- [phone] 05/10/2020 12:09 Patient: AGATHA WISE Sex: F : 1955 Age: 64yTRIAGEArrived by private vehicle. Historian: patient. Accompanied by ().Triage time: 12:11 05/10/2020. Acuity: LEVEL 4.Chief Complaint: LACERATION.Alert. No acute distress.Location of injuries: right little finger. Occurred (Seat 14A). Occurred late entry - 11:46 05/10/20.( Pt states her and her are working on [employer] and she attempted to clean a cup but therewas a chip on it and sustained a lac to right pinky finger.).Treatment LANGUAGE INTERPRETER:None.SEPSIS SCREEN: SIRS Screen negative. Sepsis Screen negative. No suspected or confirmed signs ofinfection present. (12:15 05/10/2020). --12:15 05/10/20 Evelyne Araujo R.N.12:11 05/10/20. BP: 142/74. MAP: 96. HR: 81. RR: 18. O2 saturation: 99% on room air. Temp: 98.3 F(oral). Pain level now: 0/10. --12:15 05/10/20 Evelyne Araujo R.N.Weight: 72.5 kg stated. Height/Length: 63 inches Per Patient. BMI: 28.3. --12:11 05/10/20 Evelyne Araujo R.N.MedicationsmetFORMIN HCl Oral (Tablet 1000 mg) 1 tablet, 2x a day. --12:12 05/10/20 Evelyne Araujo R.N. glipiZIDE Oral 10 mg, 2x a day. --12:13 05/10/20 Evelyne Araujo R.N. ProAir HFA Inhalation 2 puffs, as needed. --12:13 05/10/20 Evelyne Araujo R.N.AllergiesCodeine Sulfate. --12:13 05/10/20 Evelyne Araujo R.N.PROBLEMS:Asthma.Diabetes Mellitus. --12:14 05/10/20 Clair Araujo R.N.Medication/allergy information source: the patient. --12:15 05/10/20 Evelyne Araujo R.N.ADDITIONAL SURGERIES:Carpal Tunnel Surgery.Cyst on back.Hernia Repair. 2 Clinical Report - Nurses [facility] Emergency Department [address] [place] [address] Phone #: ext- [phone] 05/10/2020 12:09 Patient: AGATHA WISE Sex: F : 1955 Age: 64y Tubal Ligation. --12:14 05/10/20 Evelyne Araujo R.N. History PAST MEDICAL HX: Immunizations: up-to-date. The patient is post-menopausal. Tetanus immunization status is not up-to-date. SOCIAL HX: Never smoker. No alcohol use or drug use. The patient was offered HIV testing but declined. Patient education was provided. The patient was offered hepatitis C testing but declined. Patient education was provided. ( COVID screen negative). The patient has not traveled outside the [place] Infectious disease exposure: No infectious disease exposure. (Pt had hep c in 1975, resolved). Patient is not a known carrier of tuberculosis, hepatitis, HIV, MRSA or VRE. Patient is not a known carrier of CRE. SELF HARM ASSESSMENT: Self harm assessment was performed. The patient answered "no" to the question(s) "Do you have thoughts of harming or killing yourself?" and "Do you have a plan for harming or killing yourself?". ABUSE ASSESSMENT: Abuse assessment. The patient had positive responses to the question(s) "Do you feel safe in your home?". Abuse denied. No suspicion of abuse. No report of abuse. NUTRITIONAL RISK ASSESSMENT: The nutritional risk assessment revealed no deficiencies. FUNCTIONAL ASSESSMENT: Functional assessment: no impairments noted. LEARNING NEEDS ASSESSMENT: The learning needs assessment revealed no barriers. FALL RISK ASSESSMENT: Fall risk assessment completed. No risk factors identified. SKIN INTEGRITY ASSESSMENT: Skin integrity risk assessment completed. No skin integrity risk identified. --12:15 05/10/20 Evelyne Araujo R.N. Interventions Identification band on patient. --12:15 05/10/20 Evelyne Araujo R.N.PHYSICAL ASSESSMENTAmbulatory to room.GENERAL / NEURO / PSYCH: Alert. Oriented X 4. Appears in no acute distress.EXTREMITIES: Right little finger: superficial 2.0 cm laceration with controlled bleeding.SKIN: Skin is warm and dry. --12:16 05/10/20 Evelyne Araujo R.N.NURSING PROGRESS NOTESReassurance given. Three patient identifiers checked. Call light placed in reach. Side rails up x 2. Bedplaced in lowest position. Brakes of bed on. Patient ready for evaluation- PA notified. --12:17 05/10/20Evelyne Araujo R.N. Wound cleansed with sterile saline and Hibiclens. --12:29 05/10/20 Evelyne Araujo R.N. 3 Clinical Report - Nurses [facility] Emergency Department [address] [place] [address] Phone #: ext- [phone] 05/10/2020 12:09 Patient: AGATHA WISE Sex: F : 1955 Age: 64y WOUND REPAIR: Wound repair performed by PA. Assisted by one nurse. The wound is located on the right fifth toe. The wound is 2 cm. The wound is linear. Procedure: wound repaired with Dermabond. Post-procedure: no complications and bleeding controlled. Patient tolerated the procedure well. --12:30 05/10/20 Evelyne Marion R.N. 12:42 05/10/2020 TDAP IM 0.5 mL given(Lot#: [id number], expiration date: 05/26/2022, Clinical Registered Nurse: Zipidee). Given in the right deltoid. Allergies verified and confirmed 5 rights. Information reviewed with patient including reason for taking this medication, signs of allergic reaction and precautions. Verbalizes understanding. Vaccine information statement provided to the patient. --12:42 05/10/20 Evelyne Araujo R.N.DISPOSITION / DISCHARGE Condition at departure: stable. --12:44 05/10/20 Evelyne Araujo R.N. 12:44 05/10/20. BP: 118/66. MAP: 83. HR: 80. RR: 18. O2 saturation: 97% on room air. Temp: 97.4 F (oral). Pain level now: 10/17. --12:44 05/10/20 Evelyne Araujo R.N. Departure time: 12:46 05/10/2020. No learning barriers present. Discharge instructions provided and reviewed with the patient. Reviewed warnings (Please see paper copy). Reviewed wound care instructions. Patient verbalized understanding. Written instructions provided in Syrian. The patient was discharged by the physician assistant men's soccer coach. She was discharged home and accompanied by social work lecturer. She left ambulatory and via private vehicle. Patient driving. --12:46 05/10/20 Evelyne Araujo R.N.Locked/Released at 05/10/2020 12:46 by Evelyne Araujo R.N. Name Value Range Interpretation Code Description Data Malathi rce(s) Supporting Document(s) ID Date Data Source [id number] 0001 05/10/2020 12:19:00 PM EDT [facility] 1 Clinical Report - Physicians/Mid Levels [facility] Emergency Department [address] [place] [address] Phone #: ext- [phone] 05/10/2020 12:09 Patient: AGATHA WISE Sex: F : 1955 Age: 64y Time Seen: 12:25 05/10/2020. Arrived- By private vehicle. Historian- patient.HISTORY OF PRESENT ILLNESS Chief Complaint: Injury to the right 5th (little) finger and Injury. (laceration). The injury happened just prior to arrival. The patient sustained a laceration. Occurred at home. Patient is experiencing mild pain. No injury to the head or neck or other injury.REVIEW OF SYSTEMSThe patient sustained a single laceration to the right little finger. No swelling, tingling, numbness,weakness or foreign body.PAST HISTORYProblems:Asthma.Diabetes Mellitus. Additional Surgeries: Carpal Tunnel Surgery. Cyst on back. Hernia Repair. Tubal Ligation. Medications: ProAir HFA Inhalation 2 puffs, as needed. glipiZIDE Oral 10 mg, 2x a day. metFORMIN HCl Oral (Tablet 1000 mg) 1 tablet, 2x a day. Allergies: Codeine Sulfate.SOCIAL HISTORYNever smoker. No alcohol use or drug use.PHYSICAL EXAMVital Signs: 05/10/2020 12:11 BP: 142/74. MAP: 96. HR: 81. RR: 18. O2 saturation: 99% on room air.Temp: 98.3 F. Pain level now: 0/10. Have been reviewed as abnormal. Hypertensive. Oxygensaturation normal.Appearance: Alert. Oriented X3. No acute distress. 2 Clinical Report - Physicians/Mid Levels [facility] Emergency Department [address] [place] [address] Phone #: ext- [phone] 05/10/2020 12:09 Patient: AGATHA WISE Sex: F : 1955 Age: 64y Head: Head atraumatic. Eyes: Pupils equal, round and reactive to light. Eyes normal inspection. ENT: Ears normal. Nose normal. Pharynx normal. Neck: Normal inspection. CVS: Normal heart rate. Respiratory: No respiratory distress. Abdomen: No visible injury. Back: Normal inspection. Skin: Skin warm and dry. Extremities: Right little finger: superficial 1.5 cm laceration with active bleeding of the radial aspect and proximal phalanx. Extremities otherwise negative. Neuro, Vascular and Tendons: Vascular status intact. Sensation intact. Motor intact. Tendon function intact. Neuro: Oriented X 3.PROGRESS AND PROCEDURESLaceration Repair: Time: 12:39 05/10/2020. Location: right little finger. Length: 1.5cm. Complexity:simple (closed with tissue adhesive).Wound depth/shape- subcutaneous. Distal neuro/vascular/tendon status normal. Prepped withchlorhexidine. Extensively with normal saline. Closure of superficial layer. Skin adhesive used.Post-procedure: she is stable and there are no complications. Bleeding is controlled and neuro-vascularstatus is intact distal to the wound. Dressing applied. Tetanus immunization given. Course of Care: 12:40 May 10 2020. Evaluation after observation. (Discussed risks, benefits options and pt is agreeable with dx and tx plan.). Patient counseled in person regarding the patient's stable condition, diagnosis and need for follow-up. Patient agrees with plan of care. 12:41 May 10 2020. Disposition: Discharged home in good and improved condition (12:41 May 10 2020).CLINICAL IMPRESSION Single superficial laceration to the right little finger. No foreign body present or right fingernail injury.INSTRUCTIONS Your Current Medications: Your current home medications have been reviewed. CONTINUE TAKING THE FOLLOWING MEDICATIONS: glipiZIDE Oral : 10 mg 2x a day. metFORMIN HCl Oral : Tablet 1000 mg, 1 tablet 2x a day. ProAir HFA Inhalation : 2 puffs, prn. 3 Clinical Report - Physicians/Mid Levels [facility] Emergency Department [address] [place] [address] Phone #: ext- [phone] 05/10/2020 12:09 Patient: AGATHA WISE Sex: F : 1955 Age: 64y Follow-up: Follow up with your doctor as needed. Reason for referral: evaluation and treatment. Summary of care provided to patient. Understanding of the discharge instructions verbalized by patient.(Electronically signed by YULIET Gonzalez 05/10/2020 21:41) Name Value Range Interpretation Code Description Data Malathi rce(s) Supporting Document(s) Procedure Social History Code Duration Value Status Description Data Source(s ) Smoking 02/28/2020 12:00:00 AM EDT Never Smoker completed Never S faina eCW1 ([facility]) Vital Signs ID Date Data Source UNK Name Value Range Interpretation Code Description Data Source(s) Body weight 2424 [oz_av] 2424 [oz_av] [facility] ([facility]) Systolic blood pressure 124 mm[Hg] 124 mm[Hg] A [facility]) Body mass index (BMI) [Ratio] 26.8 kg/m2 26.8 k g/m2 [place] ([facility]) Body height 63 [in_i] 63 [in_i] [place] ([facility]) Diastolic blood pressure 77 mm[Hg] 77 mm[Hg] [place] ([facility]) Body weight 2434 [oz_av] 2434 [oz_av] MARGARETH ([facility]) Systolic blood pressure 154 mm[Hg] 154 mm[Hg] A [facility] ([facility]) Systolic blood pressure 138 mm[Hg] 138 mm[Hg] A [facility] ([facility]) Body mass index (BMI) [Ratio] 26.9 kg/m2 26.9 k g/m2 [place]ARG[place] ([facility]) Body height 63 [in_i] 63 [in_i] [place] ([facility]) Diastolic blood pressure 93 mm[Hg] 93 mm[Hg] [place]ARG[place]ETH ([facility]) Diastolic blood pressure 79 mm[Hg] 79 mm[Hg] [place] ([facility]) Body weight 2434 [oz_av] 2434 [oz_av] [place] ([facility]) Systolic blood pressure 154 mm[Hg] 154 mm[Hg] A [place] ([facility]) Systolic blood pressure 138 mm[Hg] 138 mm[Hg] A [place] ([facility]) Body mass index (BMI) [Ratio] 26.9 kg/m2 26.9 k g/m2 [place] ([facility]) Body height 63 [in_i] 63 [in_i] [place] ([facility]) Diastolic blood pressure 93 mm[Hg] 93 mm[Hg] [place] ([facility]) Diastolic blood pressure 79 mm[Hg] 79 mm[Hg] [place] ([facility]) Diastolic blood pressure 80 mm[Hg] 80 mm[Hg] eCW1 ([facility]) Systolic blood pressure 132 mm[Hg] 132 mm[Hg] e CW1 ([facility]) Body temperature 98.2 [degF] 98.2 [degF] eCW1 ( [facility]) Respiratory rate 18 /min 18 /min eCW1 ([facility]) Heart rate 85 /min 85 /min eCW1 ([facility]) Body mass index (BMI) [Ratio] 26.50 kg/m2 26.50 kg/m2 eCW1 ([facility]) Body height 63 [in_i] 63 [in_i] eCW1 ([facility]) Body weight 149.6 [lb_av] 149.6 [lb_av] eCW1 ([facility]) Heart rate 80 /min 80 /min eCW1 ([facility]) Body mass index (BMI) [Ratio] 27.17 kg/m2 27.17 kg/m2 eCW1 ([facility]) Body height 63 [in_us] 63 [in_us] eCW1 ([facility]) Body weight Measured 153.4 [lb_av] 153.4 [lb_av ] eCW1 ([facility]) Diastolic blood pressure 72 mm[Hg] 72 mm[Hg] eCW1 ([facility]) Systolic blood pressure 128 mm[Hg] 128 mm[Hg] e CW1 ([facility]) Body temperature 98.6 [degF] 98.6 [degF] eCW1 ( [facility]) Respiratory rate 20 /min 20 /min eCW1 ([facility]) Patient Treatment Plan of Care Planned Activity Planned Date Details Description Data Source (s) 200 ACTUAT Albuterol 0.09 MG/ACTUAT Metered Dose Inhal er [Ventolin] 11/28/2019 12:00:00 AM EDT eCW1 ([facility]) Omeprazole 20 MG Delayed Release Oral Tablet 11/28/2019 12:00:00 AM EDT eCW1 ([facility]) Ranitidine 150 MG Oral Tablet MARGARETH ([facility]) Oseltamivir 75 MG Oral Capsule MARGARETH ([facility]) Glipizide 5 MG Oral Tablet A THENA ([facility]) Ranitidine 150 MG Oral Tablet MARGARETH ([facility]) Oseltamivir 75 MG Oral Capsule MARGARETH ([facility])
[2020-10-28] MEDS ORDERED: LIDOCAINE 5% (LIDODERM) PATCH TD ONE (15:00)
[2020-10-28] MEDS ORDERED: KETOROLAC 30 MG/ML 1ML VIAL IM ONE (15:00)
[2020-10-28] MEDS ORDERED: CYCLOBENZAPRINE 5MG TABLET PO ONE (15:00)
[2020-10-28] MEDS ORDERED: ROBA750T4 PO (15:33)
--- OUTSIDE RECORDS SUMMARY | 2020-10-28 15:42 | CCD ---
Author Author [facility] Organization [facility] Address Unknown Phone Unavailable Care Team Providers Care Unit Reactor Operator Name Role Phone Andrea, A Crystal MANAGER HOME Unavailable Unavailable Capulin, A Crystal MANAGER HOME Unavailable Unavailable Capulin, A Crytsal MANAGER HOME Unavailable Unavailable Capulin, A Crystal MANAGER HOME Unavailable Unavailable Capulin, A Crystal MANAGER HOME Unavailable Unavailable Capulin, A Crystal MANAGER HOME Unavailable Unavailable Capulin, A Crystal MANAGER HOME Unavailable Unavailable Capulin, A Crystal MANAGER HOME Unavailable Unavailable Capulin, A Crystal MANAGER HOME Unavailable Unavailable Capulin, A Crystal MANAGER HOME Unavailable Unavailable Capulin, A Crystal MANAGER HOME Unavailable Unavailable Capulin, A Crystal MANAGER HOME Unavailable Unavailable Capulin, A Crystal MANAGER HOME Unavailable Unavailable Capulin, A Crystal MANAGER HOME Unavailable Unavailable Capulin, A Crystal MANAGER HOME Unavailable Unavailable Capulin, A Crystal MANAGER HOME Unavailable Unavailable Capulin, A Crystal MANAGER HOME Unavailable Unavailable Capulin, A Crystal MANAGER HOME Unavailable Unavailable Capulin, A Crystal MANAGER HOME Unavailable Unavailable Capulin, A Crystal MANAGER HOME Unavailable Unavailable Capulin, A Crystal MANAGER HOME Unavailable Unavailable Capulin, A Crystla MANAGER HOME Unavailable Unavailable Capulin, A Crystal MANAGER HOME Unavailable Unavailable Capulin, A Crystal MANAGER HOME Unavailable Unavailable Capulin, A Crystal MANAGER HOME Unavailable Unavailable Capulin, A Crystal MANAGER HOME Unavailable Unavailable Capulin, A Crystal MANAGER HOME Unavailable Unavailable Capulin, A Crystal MANAGER HOME Unavailable Unavailable Marilou YOUNG MD Unavailable Unavailable [...] is protected by Article 27-F of the [facility] Public Health law. If you continue you may have access to information: Regarding HIV / AIDS; Provided by facilities licensed or operated by the [facility] Office of Mental Health; or Provided by the [facility] Office for People With Developmental Disabilities. If such information is present, then the following [facility] mandated warning applies: This information has been [...] law may result in a fine or senior living sentence or both. A general authorization for the release of medical or other information is NOT sufficient authorization for further disc losure. Allergies and Adverse Reactions Type Description Substance Reaction Status Data Source(s ) No Known Environmental Allergies No Known Environmental Al lergies [facility] No Known Food Allergies No Known Food Allergies [facility] Drug allergy CODEINE CODEINE RASH [facility] Codeine Sulfate Codeine Sulfate Codeine Sulfate Rash Active eCW1 ([facility]) Family History Family Member Name Family Member Gender Family Member Status Date o f Status Description Data Source(s) Unknown Unknown Problem MEDENT ([facility]) Unknown Male Problem MEDENT ([facility]) () Unknown Male Problem MEDENT ([facility]) Unknown Unknown Problem MEDENT ([facility] Unknown Unknown Problem MEDENT ([facility]) Unknown Unknown Problem MEDENT ([facility]) Unknown Unknown Problem MEDENT ([facility]) Unknown Unknown Problem MEDENT ([facility]) Encounters Encounter Providers Location Date Indications Data Source(s ) [facility] [address], [place] [address], Ph. Attender: Crystal Mendez [facility] Medical 10/03/2020 12:00:00 AM EST MARGARETH ([facility]) Crystal Mendez [facility]: [address], [place] [address], Ph. Attender: Crystal Mendez [facility] Medical 08/29/2020 12:00:00 AM EST MARGARETH ([facility]) [facility]: [address], [place] [address], Ph. Attender: Crystal Mendez [facility] Medical 08/22/2020 12:00:00 AM EST MARGARETH ([facility]) Crystal Mendez [facility]: [address], [place] [address], Ph. Attender: Crystal Mendez [facility] Medical 08/22/2020 12:00:00 AM EST MARGARETH ([facility]) Emergency Attender: MARIA LUZ YOUNG MD 2019 12:19:00 PM EDT - 05/10/2020 12:46:00 PM EDT [facility] Patient discharged. Outpatient [address] [facility] [facility] [address] 02/28/2020 12:00:00 AM EDT eCW1 ([facility]) [facility] [address] [facility] [address] 01/16/2020 12:00:00 AM EDT eCW1 ([facility]) [facility] [address] [facility] [address] 12/28/2019 12:00:00 AM EDT eCW1 ([facility]) [facility] GME Resident [address] [place] [phone] 11/28/2019 12:00:00 AM EDT eCW1 ([facility]) [facility] [address] [place] [address], [place] [address] 10/28/2019 12:00:00 AM EST eCW1 ([facility]) [address] [address] 10/27/2019 12:00:00 AM EST eCW1 ([facility]) [facility] [address] [place] [address], [place] [address] 10/24/2019 12:00:00 AM EST eCW1 ([facility]) [facility] [address] [place] [address], [place] [address] 10/12/2019 12:00:00 AM EST eCW1 ([facility]) Outpatient 09/26/2019 06:13:00 AM EST [facility] [address] [place] [address], [place] [address] 09/15/2019 12:00:00 AM EST eCW1 ([facility]) Immunizations Vaccine Date Status Description Data Source(s) New in 2011. IIV4 08/24/2020 07:28:00 AM EST completed 0.5 mL MARGARETH ([facility] er) New in 2011. IIV4 08/24/2020 07:28:00 AM EST completed 0.5 mL MARGARETH ([facility]) Medications Medication Brand Name Start Date Product [...] EDT active 1 puff as needed eCW1 ([facility]) 20 mg 11/28/2019 12:00:00 AM [...] AM EDT active as direc hardeep eCW1 ([facility]) 10 mg 11/28/2019 12:00:00 AM [...] tolin HFA 108 (90 Base) MCG/ACT eCW1 ([facility]) 20 mg 11/28/2019 12:00:00 AM [...] completed oseltamivir 75 MG Oral Capsule MARGARETH ([facility]) Glipizide 5 MG Oral Tablet glipizide 5 m g tablet TAKE ONE TABLET BY MOUTH TWICE A DAY glipizide 5 mg tablet TAKE ONE TABLET BY MOUTH TWICE A DAY completed glipizide 5 MG Oral Tablet ATHEN A ([facility]) Oseltamivir 75 MG Oral Capsule oseltamivir 75 mg capsu le oseltamivir 75 mg capsule completed oseltamivir 75 MG Oral Capsule MARGARETH ([facility]) Ranitidine 150 MG Oral Tablet ranitidine 150 mg tablet ranit idine 150 mg tablet completed ranitidine 150 MG Oral Tablet MARGARETH ([facility]) Ranitidine 150 MG Oral Tablet ranitidine 150 mg tablet ranit idine 150 mg tablet completed ranitidine 150 MG Oral Tablet MARGARETH ([facility]) Insurance Providers Payer name Policy type / Coverage type Policy ID Covered green party ID Covered green party's relationship to kay Policy Kay Plan Information [facility] COMMUNITY PLAN [facility] [id number] SP [id number] [facility] COMMUNITY PLAN XIX [id number] 18 [id number] [facility] COMMUNITY PLAN [facility] [id number] SP [id number] [facility] O [id number] S [id number] [facility] COMMUNITY PLAN [facility] [id number] SP [id number] ANSI-Medicaid [id number] ANSI-Medicaid [id number] ANSI-Medicaid [id number] [place] Part [place] [id number] Self [id number] [facility] Community Plan Commercial [id number] Self [id number] [facility] Community Plan Medigap Part B [id number] Self [id number] [employer] (pr) Medigap Part B [id number] Self [id number] [place] Med[place] [id number] Self [id number] [facility] Community Plan Commercial [id number] Self [id number] ANSI-Medicaid [id number] ANSI-Medicaid [id number] ANSI-Medicaid [id number] ANSI-Medicaid [id number] ANSI-Medicaid [id number] ANSI-Medicaid [id number] [facility] COMMUNITY PLAN [facility] [id number] SP [id number] [facility] COMM[facility]ITY [facility]AN [facility] [id number] SP [id number] [facility] COMMUNITY PLAN [facility] [id number] SP [id number] ANSI-Medicaid [id number] ANSI-Medicaid [id number] ANSI-Medicaid [id number] ANSI-Medicaid [id number] ANSI-Medicaid [id number] ANSI-Medicaid [id number] ANSI-Medicaid [id number] ANSI-Medicaid [id number] ANSI-Medicaid [id number] ANSI-Medicaid [id number] [facility] COMMUNITY PLAN [facility] [id number] [facility] Health Maintenance Organization (HMO) [id number] Self [id number] ANSI-Medicaid [id number] ANSI-Medicaid [id number] ANSI-Medicaid [id number] ANSI-Medicaid [id number] ANSI-Medicaid [id number] ANSI-Medicaid [id number] ANSI-Medicaid [id number] ANSI-Medicaid [id number] ANSI-Medicaid [id number] ANSI-Medicaid [id number] [facility] O [id number] S [id number] ANSI-Medicaid [id number] ANSI-Medicaid [id number] ANSI-Medicaid [id number] ANSI-Medicaid [id number] [facility] COMMUNITY PLAN MCDO [id number] SP [id number] [place]ig[place] Part B [id number] Self [id number] [facility] Community Plan Commercial [id number] Self [id number] [facility] COMMUNITY PLAN MCDO [id number] SP [id number] [place]ig[place] Part B [id number] Self [id number] [facility] COMMUNITY PLAN MCDO [id number] SP [id number] [facility] COMMUNITY PLAN MCDO [id number] SP [id number] UNHC COMMUNITY PLAN MCDO [id number] SP [id number] MEDICAID [id number] SP [id number] [facility] [place] [id number] SP [id number] [facility] [place] [id number] SP [id number] [employer] [id number] SP [id number] [facility] [place] [id number] SP [id number] [facility] [id number] [address] [id number] SELF PAY UNAVAILABLE SP UNAVAILA BLE United HLCR/Community [facility] Health Maintenance Organization (HMO) Self [facility] Community Plan Commercial Self UNHC AMERICHOICE XIX -HMO [id number] 18 [id number] [facility] [facility] [place] O [id number] S [id number] MEDICAID S [id number] S [id number] [facility]) P [id number] S [id number] [place] [id number] [place] [id number] Problems, Conditions, and Diagnoses Code Display Name Description Problem Type Effective Dates Data Source(s) S38648 Unspecified place in unspeci fied non-institutional (private) residence as the place of occurrence of the external cause Unspecified place in unspecified non-institutional (private) residence as the place of occurrence of the external cause Diagnosis 05/10/2020 12:19:00 PM EDT [facility] [id number] Contact with other sharp obj ect(s), not elsewhere classified, initial encounter Contact with other sharp object(s), not elsewhere classified, initial encounter Diagnosis 05/10/2020 12:19:00 PM EDT [facility] Z7984 group home (current) use of oral hypoglyc emic drugs group home (current) use of oral hypoglycemic drugs Diagnosis 05/10/2020 12:19:[address] [facility] Z23 Encounter for immunization Encounter for immunization Diagnosis 05/10/2020 12:19:00 PM EDT [facility] E119 Type 2 diabetes mellitus without complic ations Type 2 diabetes mellitus without complications Diagnosis 05/10/2020 12:19:00 PM EDT [facility] [id number] Unspecified asthma, uncomplicated Unspecified as thma, uncomplicated Diagnosis 05/10/2020 12:19:00 PM EDT [facility] [id number] Laceration without foreign b lester of right little finger without damage to nail, initial encounter Laceration without foreign body of right little finger without damage to nail, initial encounter Diagnosis 05/10/2020 12:19:0 0 PM EDT [facility] [id number] Unspecified superficial inju ry of right little finger, initial encounter Unspecified superficial injury of right little finger, initial encounter Diagnosis 05/10/2020 12:19:00 PM EDT [facility] Surgeries/Procedures Procedure Description Date Indications Data Source(s) MAMMO, screening, digital, bilateral 10/03/2020 12:00: 00 AM ADRIA ZULUAGA ([facility]) Results ID Date Data Source [id number] 08/29/2020 08:15:00 AM ADRIA ZULUAGA ([facility]) Name Value Range Interpretation Code Description Data Malathi rce(s) Supporting Document(s) total 25(oh) vitamin D 49.9 NG/mL 30.0-100.0 normal Total 25(Oh) Vitamin D HARWICH ([facility]) ID Date Data Source [id number] 08/29/2020 08:15:00 AM ARDIA ZULUAGA ([facility]) Name Value Range Interpretation Code Description Data Malathi rce(s) Supporting Document(s) free T4 1.01 NG/dL 0.76-1.46 normal Free T4 HARWICH ([facility]) thyroid stimulating hormone 0.546 uIU/mL 0.358-3.740 normal Thyroid Stimulating Hormone HARWICH ([facility]) ID Date Data Source [id number] 08/29/2020 08:15:00 AM ADRIA LEBRONENA ([facility]) Name Value Range Interpretation Code Description Data Malathi rce(s) Supporting Document(s) HDL cholesterol 56 mg/dL >40 normal HDL Cholesterol ATHE NA ([facility]) Cholesterol in LDL [Mass/volume] in Serum or Plasma 95 mg/dL <1 00 normal LDL Cholesterol MARGARETH ([facility]) triglycerides level 79 mg/dL <150 normal Triglycerides Le mikayla MARGARETH ([facility]) cholesterol level 167 mg/dL <200 normal Cholesterol Level MARGARETH ([facility]) non-HDL-C 111 mg/dL normal Non-hdl-c MARGARETH ([facility]) cholesterol risk ratio <5 normal Cholesterol R isk Ratio MARGARETH ([facility]) ID Date Data Source [id number] 08/29/2020 08:15:00 AM EST MARGARETH ([facility]) Name Value Range Interpretation Code Description Data Malathi rce(s) Supporting Document(s) glucose, fasting 268 mg/dL 70-100 Above high normal Glucose, Fas ting HARWICH ([facility]) blood urea nitrogen 13 mg/dL 7-18 normal Blood Urea Nitro gen HARWICH ([facility]) creatinine for GFR 0.71 mg/dL 0.55-1.30 normal Creatinine for GF R HARWICH ([facility]) sodium level 139 mEq/L 136-145 normal Sodium Level MARGARETH ([facility]) glomerular filtration rate > 60.0 >45 normal Glomerula r Filtration Rate MARGARETH ([facility]) chloride level 105 mEq/L 98-107 normal Chloride Level HARWICH ([facility]) potassium serum 5.0 mEq/L 3.5-5.1 normal Potassium Serum [facility] ([facility]) carbon dioxide level 31 mEq/L 21-32 normal Carbon Dioxide Level HARWICH ([facility]) anion gap 3 mEq/L 8-16 Below low normal Anion Gap MARGARETH ( [facility]) ALT/SGPT 37 U/L 12-78 normal ALT/SGPT MARGARETH ([facility]) calcium level 9.1 mg/dL 8.8-10.2 normal Calcium Level MARGARETH ( [facility]) AST/SGOT 15 U/L 7-37 normal AST/SGOT HARWICH ([facility]) alkaline phosphatase 73 U/L 45-117 normal Alkaline Phosph atase MARGARETH ([facility]) total protein 7.1 gm/dL 6.4-8.2 normal Total Protein MARGARETH ( [facility]) albumin/globulin ratio 1.2-2.2 normal Albumin/globu desirae Ratio MARGARETH ([facility]) albumin 3.9 gm/dL 3.2-5.2 normal Albumin MARGARETH ([facility]) bilirubin,total 0.4 mg/dL 0.2-1.0 normal Bilirubin,total ATHE NA ([facility]) ID Date Data Source [id number] 08/29/2020 08:15:00 AM EST MARGARETH ([facility]) Name Value Range Interpretation Code Description Data Malathi rce(s) Supporting Document(s) estimated average glucose 252 mg/dL 60-110 Above high norm al Estimated Average Glucose MARGARETH ([facility]) Hemoglobin A1c/Hemoglobin.total in Blood 10.4 % normal Hemoglobin a1C MARGARETH ([facility]) ID Date Data Source [id number] 08/29/2020 08:15:00 AM EST MARGARETH ([facility]) Name Value Range Interpretation Code Description Data Malathi rce(s) Supporting Document(s) white blood count 4.6 10 4.0-10.0 normal White Blood Count MARGARETH ([facility]) hematocrit 41.1 % 36.0-47.0 normal Hematocrit MARGARETH ([facility]) hemoglobin 13.4 g/dL 12.0-15.5 normal Hemoglobin MARGARETH ([facility]) red blood count 4.51 10 4.00-5.40 normal Red Blood Count ATHE NA ([facility]) mean corpuscular hemoglobin 29.7 pg 27.0-33.0 normal Mean Corpuscular Hemoglobin MARGARETH ([facility]) mean corpuscular HGB conc 32.6 g/dL 32.0-36.5 normal Mean Corpu scular HGB Conc MARGARETH ([facility]) mean corpuscular volume 91.1 fL 80.0-96.0 normal Mean Corpusc ular Volume MARGARETH ([facility]) platelet count, automated 218 10 150-450 normal Platelet C ount, Automated MARGARETH ([facility]) neutrophils % 46.9 % 36.0-66.0 normal Neutrophils % MARGARETH ( [facility]) lymph % 40.1 % 24.0-44.0 normal Lymph % MARGARETH ([facility]) red cell distribution width 11.9 % 11.5-14.5 normal Red Cell Distribution Width MARGARETH ([facility]) mono % 8.9 % 0.0-5.0 Above high normal Harney % MARGARETH ([facility]) baso % 0.4 % 0.0-1.0 normal Baso % MARGARETH ([facility]) eos % 3.5 % 0.0-3.0 Above high normal Eos % MARGARETH ([facility]) nucleated red blood cell % 0.0 % 0-0 normal Nucleated Red Blood Cell % MARGARETH ([facility]) lymph # 1.9 10 1.5-5.0 normal Lymph # HARWICH ([facility]) neutrophils # 2.2 10 1.5-8.5 normal Neutrophils # HARWICH ( [facility]) immature granulocyte % 0.2 % 0-3.0 normal Immature Gran ulocyte % HARWICH ([facility]) eos # 0.2 10 0.0-0.5 normal Eos # MARGARETH ([facility]) baso # 0.0 10 0.0-0.2 normal Baso # MARGARETH ([facility]) mono # 0.4 10 0.0-0.8 normal Harney # MARGARETH ([facility]) ID Date Data Source PLZ LIVER 07/05/2020 11:16:21 AM EDT eCW1 ([facility]) Name Value Range Interpretation Code Description Data Malathi rce(s) Supporting Document(s) [facility] ID Date Data Source [id number] 05/10/2020 12:19:00 PM EDT [facility] 1 OrderSheet [facility] Emergency Department [address] [place] [address] Phone #: ext- [phone] 05/10/2020 12:09 Patient: [...] rce(s) Supporting Document(s) ID Date Data Source [id number] 05/10/2020 12:19:00 PM EDT [facility] 1 Medication Reconciliation Report [facility] Emergency Department [address] [place] [address] Phone #: ext- [phone] 05/10/2020 12:09 Patient: [...] rce(s) Supporting Document(s) ID Date Data Source [id number] 05/10/2020 12:19:00 PM EDT [facility] 1 Medication Administration Record [facility] Emergency Department [address] [place] [address] Phone #: [phone] 05/10/2020 12:09 Patient: AGATHA WISE Sex: F : 1955 Age: 64yWeight: 72.5 kgHeight/Length: 63 inBMI: 28.3ALLERGIES: Codeine Sulfate Date/Time Medication Administered Medication OrderedGiven TDAP [IM] Tdap IM 0.5 mL12:42 05/10/2020 Dose: 0.5 mL Evelyne Lemons R.N. Name Value Range Interpretation Code Description Data Malathi rce(s) Supporting Document(s) ID Date Data Source [id number] 05/10/2020 12:19:00 PM EDT [facility] 1 General Instructions [facility] Emergency Department [address] [place] [address] Phone #: ext- [phone] 05/10/2020 12:09 Patient: [...] closure or skin glue. 2 General Instructions [facility] Emergency Department [address] [place] [address] Phone #: ext- [phone] 05/10/2020 12:09 Patient: [...] pain medicines were prescribed, you can use vhpg-aou-kjugsmm pain medicines. Follow instructions for taking any [...] while the glue is 3 General Instructions [facility] Emergency Department [address] [place] [address] Phone #: ext- [phone] 05/10/2020 12:09 Patient: [...] be painful when eating. You may use alisaq-vme-rmobghm local numbing solution for pain relief. If [...] any of these occur: 4 General Instructions [facility] Emergency Department [address] [place] [address] Phone #: ext- [phone] 05/10/2020 12:09 Patient: AGATHA WISE Sex: F [...] bleeding with direct pressure. 1999- 2017 [employer]. [address] [place] [address]. All rights reserved. This information is not [...] a lot of tension. 5 General Instructions [facility] Emergency Department [address] [place] [address] Phone #: ext- [phone] 05/10/2020 12:09 Patient: [...] wound redness or swelling 6 General Instructions [facility] Emergency Department [address] [place] [address] Phone #: ext- [phone] 05/10/2020 12:09 Patient: AGATHA WISE Sex: F : 1955 Age: 64y o Pus or bad odor coming from the wound o Fever of 100.4F (38.C) or as directed by your healthcare provider Wound edges reopen [phone] [employer]. [address] [place] [address], [place] [address]. All rights reserved. This information is not intended as asubstitute for professional medical care. Always follow your healthcare professional's instructions. You have been given the following additional information: Laceration: All Closures Laceration, Face: Skin Glue(Electronically signed by YULIET Gonzalez 05/10/2020 21:41) Name Value Range Interpretation Code Description Data Malathi rce(s) Supporting Document(s) ID Date Data Source [id number] 05/10/2020 12:19:00 PM EDT [facility] 1 Clinical Report - Nurses [facility] Emergency Department [address] [place] [address] Phone #: ext- [phone] 05/10/2020 12:09 Patient: AGATHA WISE Sex: F : 1955 Age: 64yTRIAGEArrived by private vehicle. Historian: patient. Accompanied by ().Triage time: 12:11 05/10/2020. Acuity: LEVEL 4.Chief Complaint: LACERATION.Alert. No acute distress.Location of injuries: right little finger. Occurred ([employer]). Occurred late entry - 11:46 05/10/20.( Pt states her and her are working on [employer] 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 Sepsis Screen negative. [...] back.Hernia Repair. 2 Clinical Report - Nurses [facility] Emergency Department [address] [place] [address] Phone #: ext- [phone] 05/10/2020 12:09 Patient: [...] Araujo R.N. 3 Clinical Report - Nurses [facility] Emergency Department [address] [place] [address] Phone #: ext- [phone] 05/10/2020 12:09 Patient: AGATHA WISE Sex: F [...] 0.5 mL given(Lot#: [id number], expiration date: 05/26/2022, Curtain Framer: Eveo). Given in the right deltoid. Allergies verified [...] Patient verbalized understanding. Written instructions provided in Palestinian. The patient was discharged by the physician programs assistant. She was discharged home and accompanied by systems consultant. She left ambulatory and via private vehicle. Patient driving. --12:46 05/10/20 Evelyne Araujo R.N.Locked/Released at 05/10/2020 12:46 by Evelyne Araujo R.N. Name Value Range Interpretation Code Description Data Malathi rce(s) Supporting Document(s) ID Date Data Source [id number] 05/10/2020 12:19:00 PM EDT [facility] 1 Clinical Report - Physicians/Mid Levels [facility] Emergency Department [address] [place] [address] Phone #: ext- [phone] 05/10/2020 12:09 Patient: AGATHA WISE Sex: F [...] distress. 2 Clinical Report - Physicians/Mid Levels [facility] Emergency Department [address] [place] [address] Phone #: ext- [phone] 05/10/2020 12:09 Patient: [...] prn. 3 Clinical Report - Physicians/Mid Levels [facility] Emergency Department [address] [place] [address] Phone #: ext- [phone] 05/10/2020 12:09 Patient: AGATHA WISE Sex: F [...] Never Smoker completed Never S faina eCW1 ([facility]ly [facility]) Vital Signs ID Date Data Source UNK Name Value Range Interpretation Code Description Data Source(s) Body weight 2424 [oz_av] 2424 [oz_av] MARGARETH ([facility]) Systolic blood pressure 124 mm[Hg] 124 mm[Hg] A [facility]) Body mass index (BMI) [Ratio] 26.8 kg/m2 26.8 k g/m2 HARWICH ([facility]) Body height 63 [in_i] 63 [in_i] HARWICH ([facility]) Diastolic blood pressure 77 mm[Hg] 77 mm[Hg] HARWICH ([facility]) Body weight 2434 [oz_av] 2434 [oz_av] MARGARETH ([facility]) Systolic blood pressure 154 mm[Hg] 154 mm[Hg] A [facility] ([facility]) Systolic blood pressure 138 mm[Hg] 138 mm[Hg] A [facility] ([facility]) Body mass index (BMI) [Ratio] 26.9 kg/m2 26.9 k g/m2 MARGARETH ([facility]) Body height 63 [in_i] 63 [in_i] MARGARETH ([facility]) Diastolic blood pressure 93 mm[Hg] 93 mm[Hg] MARGARETH ([facility]) Diastolic blood pressure 79 mm[Hg] 79 mm[Hg] MARGARETH ([facility]) Body weight 2434 [oz_av] 2434 [oz_av] MARGARETH ([facility]) Systolic blood pressure 154 mm[Hg] 154 mm[Hg] A THENA ([facility]) Systolic blood pressure 138 mm[Hg] 138 mm[Hg] A THENA ([facility]) Body mass index (BMI) [Ratio] 26.9 kg/m2 26.9 k g/m2 MARGARETH ([facility]) Body height 63 [in_i] 63 [in_i] MARGARETH ([facility]) Diastolic blood pressure 93 mm[Hg] 93 mm[Hg] MARGARETH ([facility]) Diastolic blood pressure 79 mm[Hg] 79 mm[Hg] MARGARETH ([facility]) Diastolic blood pressure 80 mm[Hg] 80 mm[Hg] eCW1 ([facility]) Systolic blood pressure 132 mm[Hg] 132 mm[Hg] e CW1 ([facility]) Body temperature 98.2 [degF] 98.2 [degF] eCW1 ( [facility]) Respiratory rate 18 /min 18 /min eCW1 ([facility]) Heart rate 85 /min 85 /min eCW1 ([facility]) Body mass index (BMI) [Ratio] 26.50 kg/m2 26.50 kg/m2 eCW1 ([facility]) Body height 63 [in_i] 63 [in_i] eCW1 ([facility]) Body weight 149.6 [lb_av] 149.6 [lb_av] eCW1 ([facility]) Heart rate 80 /min 80 /min eCW1 ([facility]) Body mass index (BMI) [Ratio] 27.17 kg/m2 27.17 kg/m2 eCW1 ([facility]) Body height 63 [in_us] 63 [in_us] eCW1 ([facility]) Body weight Measured 153.4 [lb_av] 153.4 [lb_av ] eCW1 ([facility]) Diastolic blood pressure 72 mm[Hg] 72 mm[Hg] eCW1 ([facility]) Systolic blood pressure 128 mm[Hg] 128 mm[Hg] e CW1 ([facility]) Body temperature 98.6 [degF] 98.6 [degF] eCW1 ( [facility]) Respiratory rate 20 /min 20 /min eCW1 ([facility]) Patient Treatment Plan of Care Planned Activity Planned Date Details Description Data Source (s) 200 ACTUAT Albuterol 0.09 MG/ACTUAT Metered Dose Inhal er [Ventolin] 11/28/2019 12:00:00 AM EDT eCW1 ([facility]) Omeprazole 20 MG Delayed Release Oral Tablet 11/28/2019 12:00:00 AM EDT eCW1 ([facility]) Ranitidine 150 MG Oral Tablet MARGARETH ([facility]) Oseltamivir 75 MG Oral Capsule MARGARETH ([facility]) Glipizide 5 MG Oral Tablet A THENA ([facility]) Ranitidine 150 MG Oral Tablet MARGARETH ([facility]) Oseltamivir 75 MG Oral Capsule MARGARETH ([facility])
--- NOTE | 2020-10-28 15:52 | REP ---
INDICATION: acute pop in back after lifting case water. COMPARISON: 11/11/2010 TECHNIQUE: Five views FINDINGS: AP view shows no evidence of scoliosis and only very minimal levo rotation. Pedicles spinous and transverse processes are intact. Sacral ala, foramina, SI joints and visualized iliac wings intact. SI joints without erosions. Lower thoracic spine and visualized ribs grossly intact. There is some loss of the normal lordosis as on previous study but no compression deformity or focal lesion disc space slightly narrowed at L5-S1. The other disc space heights are maintained all this stable. No spondylolysis or spondylolisthesis. IMPRESSION: Some loss of lordosis may reflect spasm but appears similar to the 2011 study. Mild disc space narrowing only at L5-S1 the other disc spaces and all vertebral body heights intact. No spondylolysis, spondylolisthesis, compression deformity or destructive lesion. <Electronically signed by Juvencio Rodriguez > 10/28/20 [id number]
[2020-10-28 15:57] VITALS: BP 131/71
[2020-10-28] MEDS ORDERED: **NOTE PATIENT COMMENT** MISC XX SCH (21:00)
== END 2020-10-28 15:59 | disposition home or self-care (01) ==
LOC: M ED 14:28
DX: S39.012A Strain of muscle, fascia and tendon of lower back, initial encounter (principal); X50.0XXA Overexertion from strenuous movement or load, initial encounter; Y92.019 Unspecified place in single-family (private) house as the place of occurrence of the external cause; Y93.9 Activity, unspecified; Y99.9 Unspecified external cause status; M48.07 Spinal stenosis, lumbosacral region; E11.9 Type 2 diabetes mellitus without complications; J45.909 Unspecified asthma, uncomplicated; Z88.6 Allergy status to analgesic agent; Z79.899 Other long term (current) drug therapy
CPT/HCPCS: 72110; 96372; 99283; J1885

== ENCOUNTER → 2020-11-27 | Outpatient (REF) | payer MEDICARE, OTHER ==
[~2020-11-27] MED LIST changes: +ROBA750T4 PO
== END ==
LOC: M LAB REF 13:21
PROVIDERS: ATTEND Nurse Practitioner Family
DX: Z12.4 Encounter for screening for malignant neoplasm of cervix (principal)
CPT/HCPCS: 87624; G0123

== ENCOUNTER → 2021-01-08 | Outpatient (CLI) | payer SELFPAY | LOC: M LABSMTC 12:28 | PROVIDERS: ATTEND Pediatrics | DX: Z11.52 Encounter for screening for COVID-19 (principal) ==

== ENCOUNTER → 2021-04-19 | Outpatient (CLI) | payer MEDICARE ==
--- NOTE | 2021-04-19 16:45 | REPMRS ---
Patient History The patient states she has not had a clinical breast exam in over a year. Family history of prostate cancer at age 76 in maternal grandfather. Benign stereotatic breast biopsy of the left breast, June 03, 2012. No breast complaints today Patient signed the MRS sheet Patient states she had her 1st Pfizer vaccine in February and the 2nd in March-both in the left arm-not sure of dates Priors on PACS Patient Identification Verified Digital Woman Screen Mammo: April 19, 2021 - Exam #: [id number] Bilateral CC and MLO view(s) were taken. Technologist: Sena Montaño, Technologist Prior study comparison: May 20, 2017, bilateral digital mammo screening bilat, performed at [facility]. May 19, 2016, bilateral digital mammo screening bilat, performed at [facility]. May 10, 2015, bilateral digital mammo screening bilat, performed at [facility]. FINDINGS: There are scattered fibroglandular densities. The [employer] volumetric breast density category is:B. There is a needle biopsy marker clip noted in the left breast. There has been no change in the appearance of the mammogram from the prior studies. There is a mild amount of scattered fibroglandular density which is fairly symmetric. There is no interval development of dominant mass, architectural distortion, or grouped microcalcification suggestive of malignancy. 3-D tomosynthesis shows no additional findings. Assessment: BI-RADS/ACR category 2 mammogram. Benign Findings. Recommendation Routine screening mammogram of both breasts in 1 year (for women over age 40). This patient's [facility] Lifetime Breast Cancer Risk is estimated at 5.9 %. This mammogram was interpreted with the aid of an FDA-approved computer-aided dectection system. Electronically Signed By: Fady Tovar MD 04/19/21 [id number]
== END ==
LOC: M WHC 10:55
PROVIDERS: ATTEND Nurse Practitioner Family
DX: Z12.31 Encounter for screening mammogram for malignant neoplasm of breast (principal)

== ENCOUNTER → 2021-05-16 | Outpatient (CLI) | payer MEDICARE ==
--- NOTE | 2021-05-16 13:53 | REP ---
INDICATION: PAIN. COMPARISON: None. TECHNIQUE: Three views of the left shoulder were performed. FINDINGS: There is moderate AC joint space narrowing which is slightly asymmetric and seen with inferior marginal osteophyte formation. The glenohumeral relationship is within normal limits. Three metallic radiodensities are seen in the humeral head consistent with anchor deployment from previous rotator cuff surgery. There are soft tissue calcifications seen in the soft tissues lateral to the humeral head. There is no acute fracture, dislocation, or subluxation. IMPRESSION: Chronic changes as described above. Soft tissue calcifications possibly secondary to chronic calcific supraspinatus tendinitis. <Electronically signed by David Rivera > 05/16/21 [id number]
== END ==
LOC: M WUC 13:01
PROVIDERS: ATTEND Physician Assistant
DX: M25.512 Pain in left shoulder (principal); M75.82 Other shoulder lesions, left shoulder

== ENCOUNTER → 2021-12-26 | Outpatient (CLI) | payer MEDICARE ==
[~2021-12-26] MED LIST changes: +BISO5TAB14 PO; +CIPR-249 PO; +ELIQ5TAB PO; +GLIP10TA6 PO; +OMEP-173 PO; +TRUL10IN SC
[2021-12-26 16:04] LABS: HEPATITIS B SURFACE ANTIBODY NEGATIVE (POSITIVE); HEPATITIS B SURFACE ANTIGEN NEGATIVE (NEGATIVE)
== END ==
LOC: M PLALAB 13:24
PROVIDERS: ATTEND Internal Medicine Infectious Disease
DX: Z86.19 Personal history of other infectious and parasitic diseases (principal)

== ENCOUNTER → 2021-12-31 | Outpatient (CLI) | payer MEDICARE ==
[2021-12-31 15:20] LABS: FREE T4 0.85 NG/DL (0.76-1.46); THYROID STIMULATING HORMONE 0.59 uIU/ML (0.358-3.740)
== END ==
LOC: M LAB 14:13
PROVIDERS: ATTEND Surgery
DX: I48.0 Paroxysmal atrial fibrillation (principal)

== ENCOUNTER → 2022-01-16 | Outpatient (CLI) | payer MEDICARE ==
[~2022-01-16] MED LIST changes: +BISO10TA14 PO
[2022-01-16 11:33] LABS: BASO % 0.5 % (0.0-1.0); EOS # 0.1 10^3/uL (0.0-0.5); EOS % 2.1 % (0.0-3.0); HEMATOCRIT 37.9 % (36.0-47.0); HEMOGLOBIN 12.9 g/dl (12.0-15.5); LYMPH # 1.9 10^3/uL (1.5-5.0); LYMPH % 45.3 % (24.0-44.0); MEAN CORPUSCULAR HEMOGLOBIN 30.7 pg (27.0-33.0); MEAN CORPUSCULAR VOLUME 90.2 fl (80.0-96.0); MONO # 0.5 10^3/uL (0.0-0.8); MONO % 11.3 % (2.0-8.0); NEUTROPHILS # 1.7 10^3/uL (1.5-8.5); NEUTROPHILS % 40.6 % (36.0-66.0); PLATELET COUNT, AUTOMATED 223 10^3/uL (150-450); WHITE BLOOD COUNT 4.3 10^3/uL (4.0-10.0)
[2022-01-16 11:49] LABS: INR 0.93; PROTHROMBIN TIME 12.9 SECONDS (12.7-14.5)
[2022-01-16 11:50] LABS: PARTIAL THROMBOPLASTIN TIME 26.5 SECONDS (25.9-37.0)
[2022-01-16 12:02] LABS: ALBUMIN 3.8 GM/DL (3.2-5.2); ALT/SGPT 40 U/L (12-78); BILIRUBIN,DIRECT 0.2 MG/DL (0.0-0.2); BILIRUBIN,TOTAL 0.5 MG/DL (0.2-1.0); BLOOD UREA NITROGEN 14 MG/DL (7-18); CREATININE FOR GFR 0.72 MG/DL (0.55-1.30); GLOMERULAR FILTRATION RATE > 60.0 (>45); TOTAL PROTEIN 7.5 GM/DL (6.4-8.2)
[2022-01-21 07:08] LABS: IGASUB2 172.2 mg/dL (73.2-301.2); IgA SERUM (part of Subclasses) 237 mg/dL (87-352); TISSUE TRANSGLUTAMINASE IgA <2 U/mL (0-3)
== END ==
LOC: M LAB 11:00
PROVIDERS: ATTEND Internal Medicine Gastroenterology
DX: K83.09 Other cholangitis (principal); Z79.899 Other long term (current) drug therapy

== ENCOUNTER → 2022-01-24 | Outpatient (CLI) | payer MEDICARE | LOC: M LABSMTC 10:02 | PROVIDERS: ATTEND Anesthesiology | DX: Z01.812 Encounter for preprocedural laboratory examination (principal); Z20.822 Contact with and (suspected) exposure to COVID-19 ==

== ENCOUNTER → 2022-03-16 | Outpatient (CLI) | payer MEDICARE | LOC: M LABSMTC 10:37 | PROVIDERS: ATTEND Anesthesiology | DX: Z01.818 Encounter for other preprocedural examination (principal); Z11.52 Encounter for screening for COVID-19 ==

== ENCOUNTER → 2022-03-24 | Outpatient (CLI) | payer MEDICARE | LOC: M LABSMTC 09:50 | PROVIDERS: ATTEND Anesthesiology | DX: Z01.818 Encounter for other preprocedural examination (principal); Z11.52 Encounter for screening for COVID-19 ==

== ENCOUNTER 2022-03-26 10:37 | Day surgery (SDC) | payer MEDICARE ==
[~2022-03-26] VITALS: Ht 160 cm; Wt 62.8 kg
[~2022-03-26 10:37] MED LIST changes: +CelecoXIB 400 MG CAP PO ONE; +INDOCYANINE GREEN 25MG VIAL (IC-GREEN) IV ONE; +ceFAZolin SOD 2 GM in IV 1 EA IV ONE
[2022-03-26] MEDS ORDERED: INSULIN LISPRO (NovoLOG) PER UNIT SC PRN (11:05)
[2022-03-26] MEDS ORDERED: LR 1,000 ML IV SCH ×2 (11:05→18:05)
[2022-03-26] MEDS ORDERED: ceFAZolin SOD 2 GM in IV 1 EA IV ONE (11:50)
[2022-03-26] MEDS ORDERED: INDOCYANINE GREEN 25MG VIAL (IC-GREEN) IV ONE (11:50)
[2022-03-26] MEDS ORDERED: CelecoXIB 400 MG CAP PO ONE (11:50)
[2022-03-26] MEDS ORDERED: bisoproloL fumarate 5 MG TAB PO ONE (13:40)
[2022-03-26] MEDS ORDERED: ROCURONIUM BROMIDE 50 MG/5 ML VIAL As Ordered ONE ×2 (13:46→16:21)
[2022-03-26] MEDS ORDERED: METOCLOPRAMIDE INJ 10MG/2ML VIAL (J2765 PER 1) As Ordered ONE (13:46)
[2022-03-26] MEDS ORDERED: ONDANSETRON 4MG 2ML VIAL As Ordered ONE (13:46)
[2022-03-26] MEDS ORDERED: MIDAZOLAM INJ 2MG/2ML VIAL (J2250 PER 1MG) As Ordered ONE (13:46)
[2022-03-26] MEDS ORDERED: KETOROLAC 60MG 2ML VIAL As Ordered ONE (13:46)
[2022-03-26] MEDS ORDERED: propofoL 200 MG/20 ML VIAL As Ordered ONE (13:46)
[2022-03-26] MEDS ORDERED: fentaNYL 250 MCG/5 ML INJECTION As Ordered ONE (13:46)
[2022-03-26] MEDS ORDERED: LIDOCAINE 2% 100MG/5ML SDV (FOR ANES.) As Ordered ONE (13:46)
[2022-03-26] MEDS ORDERED: BUPIVACAINE HCL 0.25% 30ML VIAL As Ordered ONE (15:32)
[2022-03-26] MEDS ORDERED: LIDOCAINE 1% SDV 30ML VIAL As Ordered ONE (15:32)
[2022-03-26] MEDS ORDERED: ACETAMINOPHEN 1000MG 100ML IV BTL (OFIRMEV) (J0131 PER 10MG) As Ordered ONE (15:36)
[2022-03-26] MEDS ORDERED: GLYCOPYRROLATE INJ 0.2 MG/ML 2 ML VIAL As Ordered ONE (16:05)
[2022-03-26] MEDS ORDERED: ePHEDrine SULFATE 25 MG/5 ML(5MG/ML) SYRINGE As Ordered ONE (16:19)
[2022-03-26] MEDS ORDERED: SUGAMMADEX SODIUM 500 MG/5 ML VIAL (BRIDION) As Ordered ONE (16:20)
[2022-03-26] MEDS ORDERED: ONDANSETRON 4MG 2ML VIAL IV PRN (18:05)
[2022-03-26] MEDS ORDERED: oxyCODONE 5MG TAB PO PRN (18:05)
[2022-03-26] MEDS ORDERED: fentaNYL 100 MCG/2 ML INJECTION IV PRN (18:05)
[2022-03-26] MEDS ORDERED: NORCO, ANEXSIA 5/325MG TABLET (HYDROcodone/ACETAMINOPHEN) PO PRN ×2 (19:45)
[2022-03-26 19:52] VITALS: BP 154/74
[2022-03-26] MEDS ORDERED: KETOROLAC 30 MG/ML 1ML VIAL IV PRN (21:00)
== END 2022-03-26 19:58 | disposition home or self-care (01) ==
LOC: M SDC 10:37
PROVIDERS: ATTEND Surgery
DX: K80.10 Calculus of gallbladder with chronic cholecystitis without obstruction (principal); E11.9 Type 2 diabetes mellitus without complications; I48.91 Unspecified atrial fibrillation; J44.9 Chronic obstructive pulmonary disease, unspecified; Z79.01 Long term (current) use of anticoagulants; Z79.84 Long term (current) use of oral hypoglycemic drugs; Z88.5 Allergy status to narcotic agent; Z91.013 Allergy to seafood; Z79.51 Long term (current) use of inhaled steroids
CPT/HCPCS: 47562; 88304; J0131; J1815; J1885; J2250; J2405; J2765; J3010; S2900

== ENCOUNTER → 2022-04-06 | Outpatient (CLI) | payer MEDICARE ==
[~2022-04-06] MED LIST changes: -CelecoXIB 400 MG CAP PO ONE; -INDOCYANINE GREEN 25MG VIAL (IC-GREEN) IV ONE; -ceFAZolin SOD 2 GM in IV 1 EA IV ONE
== END ==
LOC: M LABSMTC 10:00
PROVIDERS: ATTEND Anesthesiology
DX: Z01.812 Encounter for preprocedural laboratory examination (principal); Z20.822 Contact with and (suspected) exposure to COVID-19

== ENCOUNTER 2022-04-11 06:05 | Day surgery (SDC) | payer MEDICARE ==
[~2022-04-11] VITALS: Ht 160 cm; Wt 63.5 kg
[~2022-04-11 06:05] MED LIST changes: +NS 1,000 ML IV ONE
[2022-04-11] MEDS ORDERED: LR 1,000 ML IV SCH ×2 (06:30→08:50)
[2022-04-11] MEDS ORDERED: INSULIN LISPRO (NovoLOG) PER UNIT SC PRN ×2 (07:10→08:50)
[2022-04-11] MEDS ORDERED: SIMETHICONE 40MG/0.6ML DROPS 30ML As Ordered ONE (07:11)
[2022-04-11] MEDS ORDERED: ISOVUE-300 61% 50ML VIAL As Ordered ONE (07:12)
[2022-04-11] MEDS ORDERED: dexameTHASONE 4 MG/ML 1ML VIAL (J1100 PER 1MG) As Ordered ONE (07:14)
[2022-04-11] MEDS ORDERED: MIDAZOLAM INJ 2MG/2ML VIAL (J2250 PER 1MG) As Ordered ONE (07:14)
[2022-04-11] MEDS ORDERED: propofoL 200 MG/20 ML VIAL As Ordered ONE (07:14)
[2022-04-11] MEDS ORDERED: LIDOCAINE 2% 100MG/5ML SDV (FOR ANES.) As Ordered ONE (07:14)
[2022-04-11] MEDS ORDERED: ROCURONIUM BROMIDE 50 MG/5 ML VIAL As Ordered ONE (07:14)
[2022-04-11] MEDS ORDERED: fentaNYL 100 MCG/2 ML INJECTION As Ordered ONE (07:14)
[2022-04-11] MEDS ORDERED: ONDANSETRON 4MG 2ML VIAL As Ordered ONE (07:14)
[2022-04-11] MEDS ORDERED: METOCLOPRAMIDE INJ 10MG/2ML VIAL (J2765 PER 1) As Ordered ONE (07:30)
[2022-04-11] MEDS ORDERED: PHENYLephrine 500MCG 5ML (100MCG/ML) SYRINGE As Ordered ONE (07:49)
[2022-04-11] MEDS ORDERED: ePHEDrine SULFATE 25 MG/5 ML(5MG/ML) SYRINGE As Ordered ONE (07:49)
[2022-04-11] MEDS ORDERED: SUCCINYLCHOLINE 100 MG/5 ML SYRINGE (J0330) As Ordered ONE (08:00)
[2022-04-11] MEDS ORDERED: MORPHINE 2 MG/ML 1ML VIAL IV PRN (08:50)
[2022-04-11] MEDS ORDERED: traMADol 50 MG TAB PO ONE (08:50)
[2022-04-11] MEDS ORDERED: fentaNYL 100 MCG/2 ML INJECTION IV PRN (08:50)
[2022-04-11] MEDS ORDERED: ONDANSETRON 4MG 2ML VIAL IV PRN (08:50)
[2022-04-11 10:28] VITALS: BP 143/72
== END 2022-04-11 10:34 | disposition home or self-care (01) ==
LOC: M SDC 06:05
PROVIDERS: ATTEND Internal Medicine Gastroenterology
DX: K80.30 Calculus of bile duct with cholangitis, unspecified, without obstruction (principal); K83.09 Other cholangitis; K83.8 Other specified diseases of biliary tract; Z96.89 Presence of other specified functional implants; Z46.59 Encounter for fitting and adjustment of other gastrointestinal appliance and device; R93.2 Abnormal findings on diagnostic imaging of liver and biliary tract; E11.9 Type 2 diabetes mellitus without complications; J44.9 Chronic obstructive pulmonary disease, unspecified; Z79.01 Long term (current) use of anticoagulants; Z88.5 Allergy status to narcotic agent; Z91.013 Allergy to seafood; Z79.84 Long term (current) use of oral hypoglycemic drugs; Z79.899 Other long term (current) drug therapy
CPT/HCPCS: 43262; 43264; 43275; 74330; A4649; J0330; J1815; J2250; J2370; J2405; J2765; J3010; Q9967

== ENCOUNTER → 2022-07-16 | Outpatient (REF) | payer MEDICARE ==
[~2022-07-16] MED LIST changes: +ALBU6.7H6 INH; -NS 1,000 ML IV ONE; -PROV108A INH
[2022-07-16 19:10] LABS: MALB URINE SIEMENS 10.8 MG/L; MAU/CREAT RATIO 6.9 MCG/MG (0.0-30.0)
== END ==
LOC: M LAB REF 17:14
PROVIDERS: ATTEND Nurse Practitioner Family
DX: E11.65 Type 2 diabetes mellitus with hyperglycemia (principal)

== ENCOUNTER → 2022-08-06 | Outpatient (CLI) | payer MEDICARE | LOC: M PLAIMG 09:52 | PROVIDERS: ATTEND Nurse Practitioner Family | DX: R10.9 Unspecified abdominal pain (principal); Z90.49 Acquired absence of other specified parts of digestive tract; K80.50 Calculus of bile duct without cholangitis or cholecystitis without obstruction ==

== ENCOUNTER 2022-08-14 13:59 | Emergency (ER) | payer MEDICARE ==
[~2022-08-14] VITALS: Ht 160 cm; Wt 63.4 kg
[2022-08-14 14:02] VITALS: BP 162/85
== END 2022-08-14 17:20 | disposition left against medical advice (07) ==
LOC: M ED 13:59
DX: Z53.21 Procedure and treatment not carried out due to patient leaving prior to being seen by health care provider (principal)

== ENCOUNTER → 2022-08-19 | Outpatient (CLI) | payer MEDICARE ==
[2022-08-19 14:58] LABS: HEMATOCRIT 36.5 % (36.0-47.0); HEMOGLOBIN 12.1 g/dl (12.0-15.5); MEAN CORPUSCULAR HEMOGLOBIN 30.4 pg (27.0-33.0); MEAN CORPUSCULAR HGB CONC 33.2 g/dl (32.0-36.5); MEAN CORPUSCULAR VOLUME 91.7 fl (80.0-96.0); PLATELET COUNT, AUTOMATED 280 10^3/uL (150-450); RED BLOOD COUNT 3.98 10^6/uL (4.00-5.40); WHITE BLOOD COUNT 6.1 10^3/uL (4.0-10.0)
[2022-08-19 15:34] LABS: ALBUMIN 3.2 G/DL (3.2-5.2); ALKALINE PHOSPHATASE 236 U/L (46-116); ALT/SGPT 162 U/L (7.0-40); AST/SGOT 36 U/L (<34); BILIRUBIN,DIRECT 0.5 MG/DL (<0.4); BILIRUBIN,TOTAL 0.7 MG/DL (0.3-1.2); BLOOD UREA NITROGEN 12 MG/DL (9-23); CREATININE FOR GFR 0.53 MG/DL (0.55-1.30); GLOMERULAR FILTRATION RATE > 60.0 (>45); TOTAL PROTEIN 7.1 G/DL (5.7-8.2)
[2022-08-19 15:46] LABS: ATYPICAL LYMPH 7 % (0-5); BASOPHILS 2 % (0-1); EOSINOPHILS 1 % (0-3); LYMPHOCYTES 46 % (16-44); MONOCYTES 3 % (0-5); NEUTROPHILS 41 % (28-66); PLATELET ESTIMATE NORMAL (NORMAL)
== END ==
LOC: M LAB 14:31
PROVIDERS: ATTEND Internal Medicine Gastroenterology
DX: K80.43 Calculus of bile duct with acute cholecystitis with obstruction (principal); R10.13 Epigastric pain

== ENCOUNTER → 2022-09-04 | Outpatient (CLI) | payer MEDICARE ==
[~2022-09-04] MED LIST changes: +PANT40TA29 PO
[2022-09-04 10:30] LABS: BASO % 0.3 % (0.0-1.0); EOS # 0.1 10^3/uL (0.0-0.5); EOS % 2.4 % (0.0-3.0); HEMATOCRIT 36.5 % (36.0-47.0); LYMPH # 2.2 10^3/uL (1.5-5.0); MEAN CORPUSCULAR HEMOGLOBIN 30.2 pg (27.0-33.0); MEAN CORPUSCULAR HGB CONC 32.9 g/dl (32.0-36.5); MEAN CORPUSCULAR VOLUME 91.9 fl (80.0-96.0); MONO # 0.6 10^3/uL (0.0-0.8); MONO % 9.6 % (2.0-8.0); NEUTROPHILS # 2.9 10^3/uL (1.5-8.5); NEUTROPHILS % 49.4 % (36.0-66.0); PLATELET COUNT, AUTOMATED 239 10^3/uL (150-450); RED BLOOD COUNT 3.97 10^6/uL (4.00-5.40); WHITE BLOOD COUNT 5.8 10^3/uL (4.0-10.0)
[2022-09-04 10:52] LABS: ALBUMIN 3.4 G/DL (3.2-5.2); BILIRUBIN,DIRECT 0.3 MG/DL (<0.4); BILIRUBIN,TOTAL 0.5 MG/DL (0.3-1.2); TOTAL PROTEIN 6.6 G/DL (5.7-8.2)
== END ==
LOC: M LAB 09:59
PROVIDERS: ATTEND Internal Medicine Gastroenterology
DX: K83.1 Obstruction of bile duct (principal); R93.5 Abnormal findings on diagnostic imaging of other abdominal regions, including retroperitoneum

== ENCOUNTER → 2022-09-22 | Outpatient (REF) | payer MEDICARE ==
[2022-09-22 17:43] LABS: HEMOGLOBIN A1c 7.6 % (4.0-6.0)
== END ==
LOC: M LAB REF 16:32
PROVIDERS: ATTEND Nurse Practitioner Family
DX: E11.65 Type 2 diabetes mellitus with hyperglycemia (principal)

== ENCOUNTER → 2022-10-25 | Outpatient (CLI) | payer MEDICARE ==
[2022-10-25 15:37] LABS: BLOOD UREA NITROGEN 14 MG/DL (9-23); CREATININE FOR GFR 0.67 MG/DL (0.55-1.30); GLOMERULAR FILTRATION RATE > 60.0 (>45)
== END ==
LOC: M LAB 14:30
PROVIDERS: ATTEND Internal Medicine Gastroenterology
DX: R10.13 Epigastric pain (principal); K57.10 Diverticulosis of small intestine without perforation or abscess without bleeding

== ENCOUNTER → 2022-10-30 | Outpatient (CLI) | payer MEDICARE ==
[~2022-10-30] MED LIST changes: +GLUCAGON INJ 1MG VIAL As Ordered ONE; +ISOVUE-370 76% 100ML VIAL As Ordered ONE; +NEULUMEX 0.1% SUSPENSION 450ML BOTTLE (FORMERLY VOLUMEN) As Ordered ONE
== END ==
LOC: M RAD 07:44
PROVIDERS: ATTEND Internal Medicine Gastroenterology
DX: R10.13 Epigastric pain (principal)
CPT/HCPCS: 74177; J1610; Q9967

== ENCOUNTER → 2022-12-02 | Outpatient (CLI) | payer MEDICARE ==
[~2022-12-02] MED LIST changes: -GLUCAGON INJ 1MG VIAL As Ordered ONE; -ISOVUE-370 76% 100ML VIAL As Ordered ONE; -NEULUMEX 0.1% SUSPENSION 450ML BOTTLE (FORMERLY VOLUMEN) As Ordered ONE
== END ==
LOC: M LABSMTC 11:10
PROVIDERS: ATTEND Anesthesiology
DX: Z20.822 Contact with and (suspected) exposure to COVID-19 (principal)

== ENCOUNTER 2022-12-05 12:50 | Day surgery (SDC) | payer MEDICARE ==
[~2022-12-05] VITALS: Ht 160 cm; Wt 63.0 kg
[~2022-12-05 12:50] MED LIST changes: +LIDOCAINE 2% 100MG/5ML SDV (FOR ANES.) As Ordered ONE; +NS 1,000 ML IV ONE; +fentaNYL 100 MCG/2 ML INJECTION As Ordered ONE; +propofoL 200 MG/20 ML VIAL As Ordered ONE
[2022-12-05 16:05] VITALS: BP 129/72
== END 2022-12-05 16:18 | disposition home or self-care (01) ==
LOC: M OPP 12:50
PROVIDERS: ATTEND Internal Medicine Gastroenterology
DX: Z46.59 Encounter for fitting and adjustment of other gastrointestinal appliance and device (principal); K29.70 Gastritis, unspecified, without bleeding; Z79.01 Long term (current) use of anticoagulants
CPT/HCPCS: 43247; J3010

== ENCOUNTER → 2023-01-20 | Outpatient (REF) | payer MEDICARE ==
[~2023-01-20] MED LIST changes: -LIDOCAINE 2% 100MG/5ML SDV (FOR ANES.) As Ordered ONE; -NS 1,000 ML IV ONE; -fentaNYL 100 MCG/2 ML INJECTION As Ordered ONE; -propofoL 200 MG/20 ML VIAL As Ordered ONE
[2023-01-20 17:50] LABS: BASO % 0.5 % (0.0-1.0); EOS # 0.4 10^3/uL (0.0-0.5); HEMATOCRIT 39.8 % (36.0-47.0); HEMOGLOBIN 13.1 g/dl (12.0-15.5); LYMPH # 2.7 10^3/uL (1.5-5.0); LYMPH % 32.7 % (24.0-44.0); MEAN CORPUSCULAR HEMOGLOBIN 30.5 pg (27.0-33.0); MEAN CORPUSCULAR HGB CONC 32.9 g/dl (32.0-36.5); MEAN CORPUSCULAR VOLUME 92.8 fl (80.0-96.0); MONO # 0.7 10^3/uL (0.0-0.8); MONO % 8.2 % (2.0-8.0); NEUTROPHILS # 4.4 10^3/uL (1.5-8.5); NEUTROPHILS % 53.2 % (36.0-66.0); PLATELET COUNT, AUTOMATED 275 10^3/uL (150-450); RED BLOOD COUNT 4.29 10^6/uL (4.00-5.40); WHITE BLOOD COUNT 8.2 10^3/uL (4.0-10.0)
[2023-01-20 17:55] LABS: ALBUMIN 3.8 G/DL (3.2-5.2); ALKALINE PHOSPHATASE 84 U/L (46-116); ALT/SGPT 40 U/L (7.0-40); AST/SGOT 26 U/L (<34); BILIRUBIN,TOTAL 0.3 MG/DL (0.3-1.2); BLOOD UREA NITROGEN 16 MG/DL (9-23); CALCIUM LEVEL 9.6 MG/DL (8.3-10.6); CARBON DIOXIDE LEVEL 30 MMOL/L (20-31); CHLORIDE LEVEL 102 MMOL/L (98-107); CHOLESTEROL LEVEL 197 MG/DL (<200); CHOLESTEROL RISK RATIO 3.43 (<5); CREATININE FOR GFR 0.74 MG/DL (0.55-1.30); GLOMERULAR FILTRATION RATE > 60.0 (>45); GLUCOSE, FASTING 186 MG/DL (74-106); HDL CHOLESTEROL 57.4 MG/DL (>40); NON-HDL-C 139.6 MG/DL; POTASSIUM SERUM 4.6 MMOL/L (3.5-5.1); SODIUM LEVEL 138 MMOL/L (136-145); TOTAL PROTEIN 7.4 G/DL (5.7-8.2); TRIGLYCERIDES LEVEL 183 MG/DL (<150)
[2023-01-20 18:47] LABS: HEMOGLOBIN A1c 7.4 % (4.0-6.0)
== END ==
LOC: M LAB REF 16:27
PROVIDERS: ATTEND Nurse Practitioner Family
DX: Z13.228 Encounter for screening for other metabolic disorders (principal); E11.65 Type 2 diabetes mellitus with hyperglycemia

== ENCOUNTER → 2023-02-16 | Outpatient (CLI) | payer MEDICARE | LOC: M RAD 10:38 | PROVIDERS: ATTEND Physician Assistant Medical | DX: M25.562 Pain in left knee (principal) ==

== ENCOUNTER → 2023-03-04 | Outpatient (CLI) | payer MEDICARE | LOC: M RAD 14:38 | PROVIDERS: ATTEND Physician Assistant | DX: R22.42 Localized swelling, mass and lump, left lower limb (principal) ==

== ENCOUNTER → 2023-04-29 | Outpatient (REF) | payer MEDICARE ==
[2023-04-29 17:50] LABS: CHOLESTEROL RISK RATIO 2.85 (<5); HDL CHOLESTEROL 60.7 MG/DL (>40); LDL CHOLESTEROL 87.3 MG/DL (<100); NON-HDL-C 112.3 MG/DL
== END ==
LOC: M LAB REF 16:34
PROVIDERS: ATTEND Nurse Practitioner Family
DX: E11.65 Type 2 diabetes mellitus with hyperglycemia (principal); R79.89 Other specified abnormal findings of blood chemistry

== ENCOUNTER → 2023-08-04 | Outpatient (REF) | payer MEDICARE ==
[~2023-08-04] MED LIST changes: +GLIP5TAB17; -GLIP5TAB8
[2023-08-04 19:39] LABS: HEMOGLOBIN A1c 7.7 % (4.0-6.0)
[2023-08-04 19:45] LABS: ALBUMIN 3.8 G/DL (3.2-5.2); ALKALINE PHOSPHATASE 79 U/L (46-116); ALT/SGPT 119 U/L (7.0-40); AST/SGOT 79 U/L (<34); BILIRUBIN,TOTAL 0.4 MG/DL (0.3-1.2); BLOOD UREA NITROGEN 13 MG/DL (9-23); CALCIUM LEVEL 9.3 MG/DL (8.3-10.6); CARBON DIOXIDE LEVEL 30 MMOL/L (20-31); CHLORIDE LEVEL 101 MMOL/L (98-107); CREATININE FOR GFR 0.54 MG/DL (0.55-1.30); GLOMERULAR FILTRATION RATE > 60.0 (>45); GLUCOSE, FASTING 268 MG/DL (74-106); POTASSIUM SERUM 4.7 MMOL/L (3.5-5.1); SODIUM LEVEL 137 MMOL/L (136-145); TOTAL PROTEIN 7.2 G/DL (5.7-8.2)
== END ==
LOC: M LAB REF 18:01
PROVIDERS: ATTEND Nurse Practitioner Family
DX: E11.65 Type 2 diabetes mellitus with hyperglycemia (principal)

== ENCOUNTER → 2023-08-11 | Outpatient (REF) | payer MEDICARE ==
[2023-08-11 14:28] LABS: CREATININE, URINE 47.6 MG/DL
[2023-08-11 14:29] LABS: MALB URINE SIEMENS < 3.0 MG/L; MAU/CREAT RATIO 6.3 MCG/MG (0.0-30.0)
== END ==
LOC: M LAB REF 13:02
PROVIDERS: ATTEND Nurse Practitioner Family
DX: E11.65 Type 2 diabetes mellitus with hyperglycemia (principal)

== ENCOUNTER → 2023-08-26 | Outpatient (REF) | payer MEDICARE ==
[2023-08-26 13:14] LABS: ALBUMIN 3.8 G/DL (3.2-5.2); ALKALINE PHOSPHATASE 75 U/L (46-116); ALT/SGPT 44 U/L (7.0-40); AST/SGOT 25 U/L (<34); BILIRUBIN,DIRECT < 0.1 MG/DL (<0.4); BILIRUBIN,TOTAL 0.2 MG/DL (0.3-1.2); TOTAL PROTEIN 7.2 G/DL (5.7-8.2)
== END ==
LOC: M LAB REF 12:18
PROVIDERS: ATTEND Nurse Practitioner Family
DX: R74.01 Elevation of levels of liver transaminase levels (principal)

== ENCOUNTER → 2024-01-30 | Outpatient (CLI) | payer MEDICARE ==
[2024-01-30 09:59] LABS: HEMATOCRIT 36.1 % (36.0-47.0); MEAN CORPUSCULAR HEMOGLOBIN 29.9 pg (27.0-33.0); MEAN CORPUSCULAR HGB CONC 33.2 g/dl (32.0-36.5); PLATELET COUNT, AUTOMATED 245 10^3/uL (150-450); RED BLOOD COUNT 4.01 10^6/uL (4.00-5.40); WHITE BLOOD COUNT 5.5 10^3/uL (4.0-10.0)
[2024-01-30 10:24] LABS: ALBUMIN 3.8 G/DL (3.2-5.2); ALKALINE PHOSPHATASE 68 U/L (46-116); ALT/SGPT 43 U/L (7.0-40); AST/SGOT 21 U/L (<34); BILIRUBIN,TOTAL 0.5 MG/DL (0.3-1.2); BLOOD UREA NITROGEN 10 MG/DL (9-23); CALCIUM LEVEL 9.4 MG/DL (8.3-10.6); CARBON DIOXIDE LEVEL 29 MMOL/L (20-31); CHLORIDE LEVEL 106 MMOL/L (98-107); CHOLESTEROL LEVEL 129 MG/DL (<200); CHOLESTEROL RISK RATIO 2.34 (<5); CREATININE FOR GFR 0.56 MG/DL (0.55-1.30); GLOMERULAR FILTRATION RATE > 60.0 (>45); GLUCOSE, FASTING 149 MG/DL (74-106); HDL CHOLESTEROL 55.1 MG/DL (>40); LDL CHOLESTEROL 59.1 MG/DL (<100); MAGNESIUM LEVEL 1.5 MG/DL (1.8-2.4); NON-HDL-C 73.9 MG/DL; POTASSIUM SERUM 4.4 MMOL/L (3.5-5.1); SODIUM LEVEL 141 MMOL/L (136-145); TOTAL PROTEIN 7.1 G/DL (5.7-8.2); TRIGLYCERIDES LEVEL 74 MG/DL (<150)
== END ==
LOC: M LAB 08:39
PROVIDERS: ATTEND Physician Assistant
DX: I48.0 Paroxysmal atrial fibrillation (principal); E78.00 Pure hypercholesterolemia, unspecified; Z13.220 Encounter for screening for lipoid disorders

== ENCOUNTER → 2024-02-15 | Outpatient (REF) | payer MEDICARE ==
[2024-02-15 14:38] LABS: BASO % 0.6 % (0.0-1.0); EOS # 0.2 10^3/uL (0.0-0.5); EOS % 3.6 % (0.0-3.0); HEMATOCRIT 35.4 % (36.0-47.0); HEMOGLOBIN 11.7 g/dl (12.0-15.5); LYMPH # 2.2 10^3/uL (1.5-5.0); LYMPH % 35.5 % (24.0-44.0); MEAN CORPUSCULAR HEMOGLOBIN 29.9 pg (27.0-33.0); MEAN CORPUSCULAR HGB CONC 33.1 g/dl (32.0-36.5); MEAN CORPUSCULAR VOLUME 90.5 fl (80.0-96.0); MONO # 0.5 10^3/uL (0.0-0.8); MONO % 8.4 % (2.0-8.0); NEUTROPHILS # 3.2 10^3/uL (1.5-8.5); NEUTROPHILS % 51.6 % (36.0-66.0); PLATELET COUNT, AUTOMATED 239 10^3/uL (150-450); RED BLOOD COUNT 3.91 10^6/uL (4.00-5.40); WHITE BLOOD COUNT 6.2 10^3/uL (4.0-10.0)
[2024-02-15 14:41] LABS: ALBUMIN 3.8 G/DL (3.2-5.2); ALKALINE PHOSPHATASE 60 U/L (46-116); ALT/SGPT 42 U/L (7.0-40); AST/SGOT 29 U/L (<34); BILIRUBIN,TOTAL 0.3 MG/DL (0.3-1.2); BLOOD UREA NITROGEN 12 MG/DL (9-23); CALCIUM LEVEL 9.6 MG/DL (8.3-10.6); CARBON DIOXIDE LEVEL 29 MMOL/L (20-31); CHLORIDE LEVEL 105 MMOL/L (98-107); CHOLESTEROL LEVEL 101 MG/DL (<200); CHOLESTEROL RISK RATIO 1.85 (<5); CREATININE FOR GFR 0.61 MG/DL (0.55-1.30); GLOMERULAR FILTRATION RATE > 60.0 (>45); GLUCOSE, FASTING 216 MG/DL (74-106); HDL CHOLESTEROL 54.4 MG/DL (>40); MAGNESIUM LEVEL 1.6 MG/DL (1.8-2.4); NON-HDL-C 46.6 MG/DL; POTASSIUM SERUM 5.3 MMOL/L (3.5-5.1); SODIUM LEVEL 139 MMOL/L (136-145); TOTAL PROTEIN 7.1 G/DL (5.7-8.2); TRIGLYCERIDES LEVEL 73 MG/DL (<150)
[2024-02-15 14:44] LABS: THYROID STIMULATING HORMONE 0.777 uIU/ML (0.55-4.78); TOTAL 25(OH) VITAMIN D 32.4 NG/ML (20.0-100.0)
[2024-02-15 14:54] LABS: HEMOGLOBIN A1c 8.5 % (4.0-6.0)
== END ==
LOC: M LAB REF 13:29
PROVIDERS: ATTEND Nurse Practitioner Family
DX: E66.3 Overweight (principal); E55.9 Vitamin D deficiency, unspecified; E07.9 Disorder of thyroid, unspecified

== ENCOUNTER → 2024-06-15 | Outpatient (REF) | payer MEDICARE ==
[~2024-06-15] MED LIST changes: +GLIP10TA15 PO; -GLIP10TA6 PO
[2024-06-15 13:30] LABS: HEMOGLOBIN A1c 9.7 % (4.0-6.0)
[2024-06-15 13:40] LABS: ALKALINE PHOSPHATASE 74 U/L (46-116); ALT/SGPT 39 U/L (7.0-40); AST/SGOT 23 U/L (<34); BILIRUBIN,TOTAL 0.4 MG/DL (0.3-1.2); BLOOD UREA NITROGEN 18 MG/DL (9-23); CALCIUM LEVEL 10.1 MG/DL (8.3-10.6); CARBON DIOXIDE LEVEL 26 MMOL/L (20-31); CHLORIDE LEVEL 105 MMOL/L (98-107); CREATININE FOR GFR 0.63 MG/DL (0.55-1.30); GLOMERULAR FILTRATION RATE > 60.0 (>45); GLUCOSE, FASTING 168 MG/DL (74-106); POTASSIUM SERUM 5.1 MMOL/L (3.5-5.1); SODIUM LEVEL 141 MMOL/L (136-145); TOTAL PROTEIN 7.7 G/DL (5.7-8.2)
== END ==
LOC: M LAB REF 12:22
PROVIDERS: ATTEND Nurse Practitioner Family
DX: E11.65 Type 2 diabetes mellitus with hyperglycemia (principal)

== ENCOUNTER → 2024-10-19 | Outpatient (REF) | payer MEDICARE ==
[2024-10-19 15:03] LABS: ALBUMIN 3.9 G/DL (3.2-5.2); ALKALINE PHOSPHATASE 66 U/L (35-104); ALT/SGPT 32 U/L (7.0-40); AST/SGOT 26 U/L (<34); BILIRUBIN,TOTAL 0.3 MG/DL (0.3-1.2); BLOOD UREA NITROGEN 13 MG/DL (9-23); CALCIUM LEVEL 9.8 MG/DL (8.3-10.6); CARBON DIOXIDE LEVEL 28 MMOL/L (20-31); CHLORIDE LEVEL 104 MMOL/L (98-107); GLOMERULAR FILTRATION RATE > 60.0 (>45); GLUCOSE, FASTING 161 MG/DL (74-106); POTASSIUM SERUM 4.8 MMOL/L (3.5-5.1); SODIUM LEVEL 138 MMOL/L (136-145); TOTAL PROTEIN 7.5 G/DL (5.7-8.2)
[2024-10-19 15:23] LABS: HEMOGLOBIN A1c 9.9 % (4.0-6.0)
== END ==
LOC: M LAB REF 13:01
PROVIDERS: ATTEND Nurse Practitioner Family
DX: E11.65 Type 2 diabetes mellitus with hyperglycemia (principal)

== ENCOUNTER → 2024-10-26 | Outpatient (CLI) | payer MEDICARE | LOC: M RAD 11:33 | PROVIDERS: ATTEND Nurse Practitioner Family | DX: M79.642 Pain in left hand (principal) ==

== ENCOUNTER → 2025-05-19 | Outpatient (REF) | payer MEDICARE ==
[2025-05-19 13:04] LABS: CREATININE, URINE 73.5 MG/DL; MALB URINE SIEMENS < 3.0 MG/L
[2025-05-19 14:33] LABS: ALT/SGPT 41 U/L (7.0-40); AST/SGOT 29 U/L (<34); CALCIUM LEVEL 9.8 MG/DL (8.3-10.6); CARBON DIOXIDE LEVEL 28 MMOL/L (20-31); CHLORIDE LEVEL 103 MMOL/L (98-107); CREATININE FOR GFR 0.66 MG/DL (0.55-1.30); GLOMERULAR FILTRATION RATE > 90.0 (>45); IRON (FE) 77 UG/DL (50-170); POTASSIUM SERUM 5.0 MMOL/L (3.5-5.1); SODIUM LEVEL 141 MMOL/L (136-145)
[2025-05-19 14:35] LABS: BASO # 0.0 10^3/uL (0.0-0.2); BASO % 0.6 % (0.0-1.0); EOS # 0.2 10^3/uL (0.0-0.5); EOS % 2.4 % (0.0-3.0); LYMPH # 2.4 10^3/uL (1.5-5.0); LYMPH % 37.9 % (24.0-44.0); MONO # 0.5 10^3/uL (0.0-0.8); MONO % 7.5 % (2.0-8.0); NEUTROPHILS # 3.2 10^3/uL (1.5-8.5); NEUTROPHILS % 50.5 % (36.0-66.0); PLATELET COUNT, AUTOMATED 233 10^3/uL (150-450)
== END ==
LOC: M LAB REF 11:38
PROVIDERS: ATTEND Student in an Organized Health Care Education/Training Program
DX: E11.9 Type 2 diabetes mellitus without complications (principal); D64.9 Anemia, unspecified; Z86.19 Personal history of other infectious and parasitic diseases; Z68.25 Body mass index [BMI] 25.0-25.9, adult

== ENCOUNTER → 2025-06-01 | Outpatient (CLI) | payer MEDICARE | LOC: M WHC 09:44 | PROVIDERS: ATTEND Student in an Organized Health Care Education/Training Program | DX: Z12.31 Encounter for screening mammogram for malignant neoplasm of breast (principal) ==